=== PATIENT | male | born 1940 | race Caucasian/White ===

== ENCOUNTER 2016-05-30 17:46 | Inpatient (IN) ==
[2016-05-30] MEDS ORDERED: Aspirin 81 MG TAB.CHEW PO ONE (17:58)
[2016-05-30] MEDS ORDERED: Nitroglycerin 0.4 MG TAB.SUBL SL ONE (17:58)
--- NOTE | 2016-05-30 18:03 | Emergency Department Note ---
Disposition Clinical Impression: Community acquired pneumonia, [id number] kidney injury Chest pain Qualifiers: Chest pain type: chest pain due to myocardial ischemia Ischemic chest pain type : unspecified angina pectoris type Qualified Code(s): I20.9 - Angina pectoris, unspecified Disposition: Admitted As Inpatient Condition: Good Time of Disposition: 21:28 Chest Pain HPI - General Chief Complaint: ED Chest Pain Stated Complaint: CP Time Seen by Provider: 05/30/16 17:56 Source: EMS Limitations: no limitations Vital Signs Reviewed: Yes Nursing Notes Reviewed: Yes - History of Present Illness HPI Narrative: Patient is a 76-year-old male who complains of sudden onset of chest pain and left sided chest radiation to his back times. Patient states he has history of COPD, AL, aortic aneurysm, DVT, and is on Coumadin. He states pain 8 out of 10 was given nitroglycerin brought his pain down to 4 out of 10. Patient was given another nitroglycerin here in the ED but his pain down to 1/10. Severity scale (1-10): 8 - Related Data Home Medications Medication Instructions Recorded Confirmed Atorvastatin [Lipitor] 20 mg PO DAILY 04/10/15 06/04/16 Escitalopram [Lexapro] 40 mg PO DAILY 04/10/15 06/04/16 Furosemide [Lasix] 20 mg PO DAILY 04/10/15 06/04/16 Levothyroxine [Synthroid] 75 mcg PO DAILY 04/10/15 06/04/16 Mirtazapine [Remeron] 15 mg PO HS 04/10/15 06/04/16 Warfarin [Coumadin] 5 mg PO MOFR 04/10/15 06/04/16 Lamotrigine [Lamictal] 25 mg PO DAILY 08/03/15 06/04/16 Buspirone HCl [Buspar] 7.5 mg PO BID 05/30/16 06/04/16 Cyanocobalamin (Vitamin B-12) 1,000 mcg PO DAILY 05/30/16 06/04/16 [Vitamin B12] Melatonin/Pyridoxine HCl (B6) 3 mg PO HS 05/30/16 06/04/16 [Melatonin 3 mg Tablet] Omeprazole [PriLOSEC] 20 mg PO DAILY 05/30/16 06/04/16 Polyethylene Glycol 3350 [MiraLAX] 17 gm PO DAILY 05/30/16 06/04/16 Warfarin [Coumadin] 2.5 mg PO SUTUWETHSA 05/30/16 06/04/16 Previous Rx's Medication Instructions Recorded Acetaminophen [Tylenol] 650 mg PO Q6HR PRN #90 tablet 06/03/16 Aspirin Enteric Coated [Aspirin EC] 81 mg PO DAILY #90 tablet. 06/03/16 Docusate [Colace] 100 mg PO BID PRN #100 capsule 06/03/16 Midodrine [ProAmatine] 5 mg PO 0800,1200,1700 #90 tablet 06/03/16 Allergies Allergy/AdvReac Type Severity Reaction Status Date / Time Iodinated Contrast Media - Allergy Anaphylaxis Verified 06/04/16 10:53 Oral and [Iodinated Contrast Media - IV Dye] diazepam [From Valium] AdvReac Confusion Verified 06/04/16 10:53 lisinopril AdvReac Cough Verified 06/04/16 10:53 All systems ED: reviewed and negative except as stated. Constitutional: Denies: fever, chills Eyes: Denies: eye pain, eye discharge ENT ED: Denies: ear pain, throat pain, congestion Cardiovascular: Reports: chest pain Chest Pain PMH - Past Medical History Medical history: Reports: asthma, COPD, CVA, hyperlipidemia, hypertension, myocardial infarction Surgical history: Reports: angioplasty/stent, cholecystectomy Psychiatric history: Reports: no psych history - Social History Smoking Status: Former smoker Alcohol use: Reports: none Drug use: Reports: none Physical Exam Vital Signs Temperature 98.1 F 05/30/16 17:51 Pulse Rate 57 05/30/16 17:51 Respiratory Rate 16 05/30/16 17:51 Blood Pressure 151/61 05/30/16 17:51 O2 Sat by Pulse Oximetry 99 05/30/16 17:51 Temperature 0 F L 05/30/16 21:48 Pulse Rate 57 05/30/16 18:02 Respiratory Rate 16 05/30/16 21:48 Blood Pressure 158/75 05/30/16 21:48 O2 Sat by Pulse Oximetry 99 05/30/16 18:02 Oxygen Delivery Oxygen Delivery Room Air -General Appearance: Patient is a 76-year-old male who is alert and oriented 3 and in no acute distress. Patient sitting up and is able to relay particularly exam of all directions to exam. -Neurological exam: Cranial nerves II-12 intact, no focal deficits observed, strength equal 5/5 bilaterally in upper and lower extremities, cerebellar motion test negative. Negative loss of sensation - Head Head exam: atraumatic, normocephalic, normal inspection - Eye Eye exam: Present: normal appearance, PERRL, EOMI, negative for scleral icterus negative for conjunctival pallor - ENT ENT exam: normal exam, normal oropharynx, mucous membranes moist - Neck Neck exam: Present: normal inspection, full ROM, trachea midline, negative JVD - Chest Chest inspection: Present: Patient has bilateral equal rise and fall of chest wall. Non-tender to palpation. No reproducible chest wall tenderness - Respiratory Respiratory exam: Clear to auscultation bilaterally without wheezes rales or rhonchi Cardiovascular Cardiovascular exam: Present: irregular rate, normal rhythm, normal heart sounds , without murmurs rubs or gallops. - Abdominal Exam Abdominal exam: Present: soft, nondistended, tender to palpation in epigastric region. Bowel sounds normoactive throughout all 4 quadrants. Negative for hyper or hyperresonance. Surgical scar present midline abdomen - Extremities Exam Extremities exam: Present: normal inspection, full ROM pulses equal bilateral radial and dorsal pedal pulses. No pedal edema present. - Back Exam Back exam: Present: normal inspection, full ROM. Absent: tenderness, CVA tenderness (R), CVA tenderness (L) - Psychiatric Psychiatric exam: Present: normal affect, normal mood - Skin Skin exam: Present: warm, dry, intact, normal color - General Limitations: no limitations General appearance: alert, in no apparent distress Course Course Narrative: Seen and examined. CT and labs ordered. Nitroglycerin ordered. Aspirin ordered. - Reevaluation(s) Reevaluation #1: Patient is comfortable. Patient states his pain is 1 out of 10. Patient awaiting CT Time: 18:00 Reevaluation #2: Patient states still comfortable. No change in pain. Patient does not want any more nitroglycerin Time: 19:00 Reevaluation #3: CT scan shows patient has bilateral pneumonia and will require antibiotic therapy. Patient will be admitted. Patient agrees and understands treatment and plan. Time: 21:20 - Consultations Consultation #1: Dr. Jasmine has accepted for admission Time: 21:24 Vital Signs Temperature 98.1 F 05/30/16 17:51 Pulse Rate 57 05/30/16 17:51 Respiratory Rate 16 05/30/16 17:51 Blood Pressure 151/61 05/30/16 17:51 O2 Sat by Pulse Oximetry 99 05/30/16 17:51 Temperature 97.9 F 06/03/16 07:33 Pulse Rate 53 06/03/16 08:06 Respiratory Rate 16 06/03/16 07:33 Blood Pressure 141/63 06/03/16 08:06 O2 Sat by Pulse Oximetry 98 06/03/16 07:33 Oxygen Delivery Oxygen Delivery Room Air Chest Pain - MDM Narrative Medical decision making narrative: 76-year-old male place of chest pain. Worrisome for possible ACS, aortic aneurysm rupture, aortic dissection. Patient has history of aneurysms, AL, COPD. EKG shows sinus bradycardia at 57 bpm, no signs of ischemia when compared to previous EKG. Troponin is -0.01. BNP negative. Chest x-ray : Chest X-Ray 05/30/16 17:58 IMPRESSION: 1. No acute cardiopulmonary disease. D/ / Syed Jacobson MD / Syed Jacobson MD Interpreting Provider: Syed Jacobson MD Abdomen/Pelvis CT 05/30/16 18:04 IMPRESSION: 1. Mild bilateral upper and lower lobe tree-in-bud opacities compatible with an infectious or inflammatory process. Trace left pleural effusion. 2. Coronary artery atherosclerotic vascular disease. 3. Mildly enlarged nonspecific distal peritracheal lymph node mildly increased in size from 2009. 4. 3.9 x 3.7 cm fusiform infrarenal abdominal aortic aneurysm slightly increased in size from 11/29/2015. D/ / Jadyen Mabry MD / Jayden Mabry MD Interpreting Provider: Jayden Mabry MD Chest CT 05/30/16 18:04 IMPRESSION: 1. Mild bilateral upper and lower lobe tree-in-bud opacities compatible with an infectious or inflammatory process. Trace left pleural effusion. 2. Coronary artery atherosclerotic vascular disease. 3. Mildly enlarged nonspecific distal peritracheal lymph node mildly increased in size from 2009. 4. 3.9 x 3.7 cm fusiform infrarenal abdominal aortic aneurysm slightly increased in size from 11/29/2015. D/ / Jayden Mabry MD / Jayden Mabry MD Interpreting Provider: Jayden Mabry MD . Patient has a pneumonia, community-acquired. Patient started on 2 g ceftriaxone, 500 mg azithromycin. Patient will be admitted for further care. Dr. Jasmine accepted for admission. - Medical Records Medical records reviewed: Yes I reviewed the patient's medical records. - Lab Data Lab results reviewed: Yes I reviewed the patient's lab results. Lab results narrative: Short CBC 05/30/16 Range/Units 18:57 WBC 8.1 (4.3-11.1) K/mcL Hgb 13.5 (12.9-16.9) g/dL Hct 40.8 (37.5-50.1) % Plt Count 170 (140-400) K/mcL Neutrophils # 5.5 (1.6-8.9) K/mcL BMP 05/30/16 Range/Units 18:57 Sodium 141 (136-145) mEq/L Potassium 4.1 (3.5-4.5) mEq/L Chloride 105 (98-109) mEq/L Carbon Dioxide 25 (19-29) mEq/L BUN 18 (8-26) mg/dL Creatinine 1.75 H (0.72-1.25) mg/dL Glucose 94 (70-99) mg/dL Calcium 8.9 (8.6-10.8) mg/dL Cardiac Enzymes 05/30/16 Range/Units 18:57 Troponin I 0.01 (0-0.03) ng/mL Result diagrams: 06/03/16 10:06 06/03/16 10:06 Lab Results 05/30/16 05/30/16 05/30/16 Range/Units 18:57 18:57 18:57 WBC 8.1 (4.3-11.1) K/mcL RBC 4.57 (4.19-5.50) M/mcL Hgb 13.5 (12.9-16.9) g/dL Hct 40.8 (37.5-50.1) % MCV 89.3 (83.0-100.0) fL MCH 29.5 (28.0-33.3) pg MCHC 33.1 (31.6-35.5) g/dL RDW 13.9 (11.5-14.5) % Plt Count 170 (140-400) K/mcL MPV 9.2 L (9.4-12.4) fL Immature Gran % 0.4 (0-4) % Seg Neutrophils % 67.7 % Lymphocytes % 24.3 % Monocytes % 5.9 % Eosinophils % 1.2 % Basophils % 0.5 % Neutrophils # 5.5 (1.6-8.9) K/mcL Lymphocytes # 2.0 (0.6-4.6) K/mcL Monocytes # 0.5 (0.0-1.3) K/mcL Eosinophils # 0.1 (0.0-0.6) K/mcL Basophils # 0.0 (0.0-0.2) K/mcL PT 21.1 H (9.4-12.1) Seconds INR 1.9 APTT 37.3 H (26.0-36.0) Seconds VBG pH (7.32-7.42) pH Units VBG pCO2 (41-51) mmHg VBG pO2 (25-40) mmHg VBG HCO3 (21-27) mEq/L Sodium (136-145) mEq/L Potassium (3.5-4.5) mEq/L Chloride (98-109) mEq/L Carbon Dioxide (19-29) mEq/L BUN (8-26) mg/dL Creatinine (0.72-1.25) mg/dL Est GFR ( Amer) (> 60) Est GFR (Non-Af Amer) (> 60) BUN/Creatinine Ratio (6-26) Glucose (70-99) mg/dL Calculated Osmolality (280-300) Calcium (8.6-10.8) mg/dL Ionized Calcium (1.15-1.35) mmol/L Phosphorus (2.3-4.7) mg/dL Magnesium (1.6-2.6) mg/dL Total Bilirubin (0.2-1.2) mg/dL AST (5-34) Units/L ALT (0-55) Units/L Alkaline Phosphatase (38-126) Units/L Troponin I (0-0.03) ng/mL B-Natriuretic Peptide 363 H (0-100) pg/mL Serum Total Protein (6.0-8.3) g/dL Albumin (3.5-5.0) g/dL Globulin (2.4-3.5) g/dL Albumin/Globulin Ratio (1.1-2.2) Triglycerides (< 150) mg/dL Cholesterol (< 200) mg/dL LDL Cholesterol, Calc (0-99) mg/dL VLDL Cholesterol, Calc (< 31) mg/dL HDL Cholesterol (40-59) mg/dL Cholesterol/HDL Ratio (0-4.9) TSH (0.350-4.840) mcIU/mL Urine Color (Yellow) Urine Clarity (Clear) Urine pH (5.0-8.0) pH Units Ur Specific [place] (1.010-1.025) Urine Protein (Neg-Trace) mg/dL Urine Glucose (UA) (Normal) mg/dL Urine Ketones (Negative) mg/dL Urine Blood (Negative) Urine Nitrite (Negative) Urine Bilirubin (Negative) Urine Urobilinogen (Normal) mg/dL Ur Leukocyte Esterase (Negative) Urine Microscopic RBC (0-3) per hpf Urine Microscopic WBC (0-3) per hpf Ur Squamous Epith Cells (None-Few) per lpf Urine Bacteria (None-Few) per hpf Hyaline Casts (None-Few) per lpf Ur Culture Indicated? (NO) Histoplasma Antigen U/mL Histoplasma Ag Interp (Negative) 05/30/16 05/30/16 05/30/16 Range/Units 18:57 18:57 23:08 WBC (4.3-11.1) K/mcL RBC (4.19-5.50) M/mcL Hgb (12.9-16.9) g/dL Hct (37.5-50.1) % MCV (83.0-100.0) fL MCH (28.0-33.3) pg MCHC (31.6-35.5) g/dL RDW (11.5-14.5) % Plt Count (140-400) K/mcL MPV (9.4-12.4) fL Immature Gran % (0-4) % Seg Neutrophils % % Lymphocytes % % Monocytes % % Eosinophils % % Basophils % % Neutrophils # (1.6-8.9) K/mcL Lymphocytes # (0.6-4.6) K/mcL Monocytes # (0.0-1.3) K/mcL Eosinophils # (0.0-0.6) K/mcL Basophils # (0.0-0.2) K/mcL PT (9.4-12.1) Seconds INR APTT (26.0-36.0) Seconds VBG pH (7.32-7.42) pH Units VBG pCO2 (41-51) mmHg VBG pO2 (25-40) mmHg VBG HCO3 (21-27) mEq/L Sodium 141 (136-145) mEq/L Potassium 4.1 (3.5-4.5) mEq/L Chloride 105 (98-109) mEq/L Carbon Dioxide 25 (19-29) mEq/L BUN 18 (8-26) mg/dL Creatinine 1.75 H (0.72-1.25) mg/dL Est GFR ( Amer) 46 L (> 60) Est GFR (Non-Af Amer) 38 L (> 60) BUN/Creatinine Ratio 10 (6-26) Glucose 94 (70-99) mg/dL Calculated Osmolality 294 (280-300) Calcium 8.9 (8.6-10.8) mg/dL Ionized Calcium (1.15-1.35) mmol/L Phosphorus (2.3-4.7) mg/dL Magnesium (1.6-2.6) mg/dL Total Bilirubin (0.2-1.2) mg/dL AST (5-34) Units/L ALT (0-55) Units/L Alkaline Phosphatase (38-126) Units/L Troponin I 0.01 0.01 (0-0.03) ng/mL B-Natriuretic Peptide (0-100) pg/mL Serum Total Protein (6.0-8.3) g/dL Albumin (3.5-5.0) g/dL Globulin (2.4-3.5) g/dL Albumin/Globulin Ratio (1.1-2.2) Triglycerides (< 150) mg/dL Cholesterol (< 200) mg/dL LDL Cholesterol, Calc (0-99) mg/dL VLDL Cholesterol, Calc (< 31) mg/dL HDL Cholesterol (40-59) mg/dL Cholesterol/HDL Ratio (0-4.9) TSH (0.350-4.840) mcIU/mL Urine Color (Yellow) Urine Clarity (Clear) Urine pH (5.0-8.0) pH Units Ur Specific [place] (1.010-1.025) Urine Protein (Neg-Trace) mg/dL Urine Glucose (UA) (Normal) mg/dL Urine Ketones (Negative) mg/dL Urine Blood (Negative) Urine Nitrite (Negative) Urine Bilirubin (Negative) Urine Urobilinogen (Normal) mg/dL Ur Leukocyte Esterase (Negative) Urine Microscopic RBC (0-3) per hpf Urine Microscopic WBC (0-3) per hpf Ur Squamous Epith Cells (None-Few) per lpf Urine Bacteria (None-Few) per hpf Hyaline Casts (None-Few) per lpf Ur Culture Indicated? (NO) Histoplasma Antigen U/mL Histoplasma Ag Interp (Negative) 05/31/16 05/31/16 05/31/16 Range/Units 00:15 06:26 06:26 WBC 8.3 (4.3-11.1) K/mcL RBC 5.25 (4.19-5.50) M/mcL Hgb 15.6 D (12.9-16.9) g/dL Hct 47.8 (37.5-50.1) % MCV 91.0 (83.0-100.0) fL MCH 29.7 (28.0-33.3) pg MCHC 32.6 (31.6-35.5) g/dL RDW 14.0 (11.5-14.5) % Plt Count 160 (140-400) K/mcL MPV 9.2 L (9.4-12.4) fL Immature Gran % 0.5 (0-4) % Seg Neutrophils % 52.3 % Lymphocytes % 37.0 % Monocytes % 6.7 % Eosinophils % 2.8 % Basophils % 0.7 % Neutrophils # 4.3 (1.6-8.9) K/mcL Lymphocytes # 3.1 (0.6-4.6) K/mcL Monocytes # 0.6 (0.0-1.3) K/mcL Eosinophils # 0.2 (0.0-0.6) K/mcL Basophils # 0.1 (0.0-0.2) K/mcL PT 18.0 H (9.4-12.1) Seconds INR 1.6 APTT 28.4 (26.0-36.0) Seconds VBG pH (7.32-7.42) pH Units VBG pCO2 (41-51) mmHg VBG pO2 (25-40) mmHg VBG HCO3 (21-27) mEq/L Sodium (136-145) mEq/L Potassium (3.5-4.5) mEq/L Chloride (98-109) mEq/L Carbon Dioxide (19-29) mEq/L BUN (8-26) mg/dL Creatinine (0.72-1.25) mg/dL Est GFR ( Amer) (> 60) Est GFR (Non-Af Amer) (> 60) BUN/Creatinine Ratio (6-26) Glucose (70-99) mg/dL Calculated Osmolality (280-300) Calcium (8.6-10.8) mg/dL Ionized Calcium (1.15-1.35) mmol/L Phosphorus (2.3-4.7) mg/dL Magnesium (1.6-2.6) mg/dL Total Bilirubin (0.2-1.2) mg/dL AST (5-34) Units/L ALT (0-55) Units/L Alkaline Phosphatase (38-126) Units/L Troponin I (0-0.03) ng/mL B-Natriuretic Peptide (0-100) pg/mL Serum Total Protein (6.0-8.3) g/dL Albumin (3.5-5.0) g/dL Globulin (2.4-3.5) g/dL Albumin/Globulin Ratio (1.1-2.2) Triglycerides (< 150) mg/dL Cholesterol (< 200) mg/dL LDL Cholesterol, Calc (0-99) mg/dL VLDL Cholesterol, Calc (< 31) mg/dL HDL Cholesterol (40-59) mg/dL Cholesterol/HDL Ratio (0-4.9) TSH (0.350-4.840) mcIU/mL Urine Color Yellow (Yellow) Urine Clarity Clear (Clear) Urine pH 8.5 H (5.0-8.0) pH Units Ur Specific [place] 1.016 (1.010-1.025) Urine Protein 30 H (Neg-Trace) mg/dL Urine Glucose (UA) Normal (Normal) mg/dL Urine Ketones Negative (Negative) mg/dL Urine Blood Negative (Negative) Urine Nitrite Negative (Negative) Urine Bilirubin Negative (Negative) Urine Urobilinogen Normal (Normal) mg/dL Ur Leukocyte Esterase Negative (Negative) Urine Microscopic RBC 0-3 (0-3) per hpf Urine Microscopic WBC 0-3 (0-3) per hpf Ur Squamous Epith Cells None Seen (None-Few) per lpf Urine Bacteria None Seen (None-Few) per hpf Hyaline Casts None Seen (None-Few) per lpf Ur Culture Indicated? NO (NO) Histoplasma Antigen U/mL Histoplasma Ag Interp (Negative) 05/31/16 05/31/16 05/31/16 Range/Units 06:26 06:26 06:26 WBC (4.3-11.1) K/mcL RBC (4.19-5.50) M/mcL Hgb (12.9-16.9) g/dL Hct (37.5-50.1) % MCV (83.0-100.0) fL MCH (28.0-33.3) pg MCHC (31.6-35.5) g/dL RDW (11.5-14.5) % Plt Count (140-400) K/mcL MPV (9.4-12.4) fL Immature Gran % (0-4) % Seg Neutrophils % % Lymphocytes % % Monocytes % % Eosinophils % % Basophils % % Neutrophils # (1.6-8.9) K/mcL Lymphocytes # (0.6-4.6) K/mcL Monocytes # (0.0-1.3) K/mcL Eosinophils # (0.0-0.6) K/mcL Basophils # (0.0-0.2) K/mcL PT (9.4-12.1) Seconds INR APTT (26.0-36.0) Seconds VBG pH (7.32-7.42) pH Units VBG pCO2 (41-51) mmHg VBG pO2 (25-40) mmHg VBG HCO3 (21-27) mEq/L Sodium 143 (136-145) mEq/L Potassium 3.7 (3.5-4.5) mEq/L Chloride 106 (98-109) mEq/L Carbon Dioxide 24 (19-29) mEq/L BUN 17 (8-26) mg/dL Creatinine 1.69 H (0.72-1.25) mg/dL Est GFR ( Amer) 48 L (> 60) Est GFR (Non-Af Amer) 40 L (> 60) BUN/Creatinine Ratio 10 (6-26) Glucose 105 H (70-99) mg/dL Calculated Osmolality 298 (280-300) Calcium 9.3 (8.6-10.8) mg/dL Ionized Calcium 1.12 L (1.15-1.35) mmol/L Phosphorus 3.5 (2.3-4.7) mg/dL Magnesium 2.7 H (1.6-2.6) mg/dL Total Bilirubin 0.4 (0.2-1.2) mg/dL AST 15 (5-34) Units/L ALT 16 (0-55) Units/L Alkaline Phosphatase 89 (38-126) Units/L Troponin I 0.01 (0-0.03) ng/mL B-Natriuretic Peptide 410 H (0-100) pg/mL Serum Total Protein 6.9 (6.0-8.3) g/dL Albumin 3.7 (3.5-5.0) g/dL Globulin 3.2 (2.4-3.5) g/dL Albumin/Globulin Ratio 1.2 (1.1-2.2) Triglycerides 181 H (< 150) mg/dL Cholesterol 150 (< 200) mg/dL LDL Cholesterol, Calc 72 (0-99) mg/dL VLDL Cholesterol, Calc 36 H (< 31) mg/dL HDL Cholesterol 42 (40-59) mg/dL Cholesterol/HDL Ratio 3.6 (0-4.9) TSH 1.681 (0.350-4.840) mcIU/mL Urine Color (Yellow) Urine Clarity (Clear) Urine pH (5.0-8.0) pH Units Ur Specific [place] (1.010-1.025) Urine Protein (Neg-Trace) mg/dL Urine Glucose (UA) (Normal) mg/dL Urine Ketones (Negative) mg/dL Urine Blood (Negative) Urine Nitrite (Negative) Urine Bilirubin (Negative) Urine Urobilinogen (Normal) mg/dL Ur Leukocyte Esterase (Negative) Urine Microscopic RBC (0-3) per hpf Urine Microscopic WBC (0-3) per hpf Ur Squamous Epith Cells (None-Few) per lpf Urine Bacteria (None-Few) per hpf Hyaline Casts (None-Few) per lpf Ur Culture Indicated? (NO) Histoplasma Antigen U/mL Histoplasma Ag Interp (Negative) 05/31/16 05/31/16 Range/Units 06:26 06:26 WBC (4.3-11.1) K/mcL RBC (4.19-5.50) M/mcL Hgb (12.9-16.9) g/dL Hct (37.5-50.1) % MCV (83.0-100.0) fL MCH (28.0-33.3) pg MCHC (31.6-35.5) g/dL RDW (11.5-14.5) % Plt Count (140-400) K/mcL MPV (9.4-12.4) fL Immature Gran % (0-4) % Seg Neutrophils % % Lymphocytes % % Monocytes % % Eosinophils % % Basophils % % Neutrophils # (1.6-8.9) K/mcL Lymphocytes # (0.6-4.6) K/mcL Monocytes # (0.0-1.3) K/mcL Eosinophils # (0.0-0.6) K/mcL Basophils # (0.0-0.2) K/mcL PT (9.4-12.1) Seconds INR APTT (26.0-36.0) Seconds VBG pH 7.32 (7.32-7.42) pH Units VBG pCO2 54 H (41-51) mmHg VBG pO2 46 H (25-40) mmHg VBG HCO3 27.8 H (21-27) mEq/L Sodium (136-145) mEq/L Potassium (3.5-4.5) mEq/L Chloride (98-109) mEq/L Carbon Dioxide (19-29) mEq/L BUN (8-26) mg/dL Creatinine (0.72-1.25) mg/dL Est GFR ( Amer) (> 60) Est GFR (Non-Af Amer) (> 60) BUN/Creatinine Ratio (6-26) Glucose (70-99) mg/dL Calculated Osmolality (280-300) Calcium (8.6-10.8) mg/dL Ionized Calcium (1.15-1.35) mmol/L Phosphorus (2.3-4.7) mg/dL Magnesium (1.6-2.6) mg/dL Total Bilirubin (0.2-1.2) mg/dL AST (5-34) Units/L ALT (0-55) Units/L Alkaline Phosphatase (38-126) Units/L Troponin I (0-0.03) ng/mL B-Natriuretic Peptide (0-100) pg/mL Serum Total Protein (6.0-8.3) g/dL Albumin (3.5-5.0) g/dL Globulin (2.4-3.5) g/dL Albumin/Globulin Ratio (1.1-2.2) Triglycerides (< 150) mg/dL Cholesterol (< 200) mg/dL LDL Cholesterol, Calc (0-99) mg/dL VLDL Cholesterol, Calc (< 31) mg/dL HDL Cholesterol (40-59) mg/dL Cholesterol/HDL Ratio (0-4.9) TSH (0.350-4.840) mcIU/mL Urine Color (Yellow) Urine Clarity (Clear) Urine pH (5.0-8.0) pH Units Ur Specific [place] (1.010-1.025) Urine Protein (Neg-Trace) mg/dL Urine Glucose (UA) (Normal) mg/dL Urine Ketones (Negative) mg/dL Urine Blood (Negative) Urine Nitrite (Negative) Urine Bilirubin (Negative) Urine Urobilinogen (Normal) mg/dL Ur Leukocyte Esterase (Negative) Urine Microscopic RBC (0-3) per hpf Urine Microscopic WBC (0-3) per hpf Ur Squamous Epith Cells (None-Few) per lpf Urine Bacteria (None-Few) per hpf Hyaline Casts (None-Few) per lpf Ur Culture Indicated? (NO) Histoplasma Antigen <2.0 U/mL Histoplasma Ag Interp NEGATIVE (Negative) - Radiology Data Radiology results reviewed: Yes I reviewed the patient's radiology results. Chest X-Ray 05/30/16 17:58 IMPRESSION: 1. No acute cardiopulmonary disease. D/ / Syed Jacobson MD / Syed Jacobson MD Interpreting Provider: Syed Jacobson MD Abdomen/Pelvis CT 05/30/16 18:04 IMPRESSION: 1. Mild bilateral upper and lower lobe tree-in-bud opacities compatible with an infectious or inflammatory process. Trace left pleural effusion. 2. Coronary artery atherosclerotic vascular disease. 3. Mildly enlarged nonspecific distal peritracheal lymph node mildly increased in size from 2009. 4. 3.9 x 3.7 cm fusiform infrarenal abdominal aortic aneurysm slightly increased in size from 11/29/2015. D/ / Jayden Mabry MD / Jayden Mabry MD Interpreting Provider: Jayden Mabry MD Chest CT 05/30/16 18:04 IMPRESSION: 1. Mild bilateral upper and lower lobe tree-in-bud opacities compatible with an infectious or inflammatory process. Trace left pleural effusion. 2. Coronary artery atherosclerotic vascular disease. 3. Mildly enlarged nonspecific distal peritracheal lymph node mildly increased in size from 2009. 4. 3.9 x 3.7 cm fusiform infrarenal abdominal aortic aneurysm slightly increased in size from 11/29/2015. D/ / Jayden Mabry MD / Jayden Mabry MD Interpreting Provider: Jayden Mabry MD - EKG Data EKG attestation: Yes I reviewed and interpreted this EKG. EKG results narrative: EKG taken 05/30/2016 is a 52 hours shows a sinus bradycardia at a red circular rate of 57 bpm shows T-wave inversions in V2 and V3 seen EKG looks identical to previous EKG taken in 08/12/2015 shows normal sinus rhythm at 60 bpm. Heart Score - Score History: Moderately Suspicious EKG: Non Specific repolarisation Disturbance Age: Greater than 65 Risk Factors: Equal/Greater than 3 risk factor or history of atherosclerotic disease Troponin: Less than normal limit HEART Score Total: 6
--- NOTE | 2016-05-30 18:08 | Emergency Department Note ---
START Narrative - START START: I examined this patient and my medical decision-making was reviewed with the [employer] OPERATOR/PA/Advanced Practice Nurse/Resident Physician. I agree with the documented findings, disposition and treatment plan as described except to the extent set forth below. Patient to the emergency department complaining of chest pain. Started around 4 PM. He described it as palpitations that went into his back. States, trouble getting a deep breath. He is also some epigastric pain as well. History coronary disease with one stent placement. No cardiac workup within the past year. Took a nitroglycerin pill which helped. On exam he is in no distress. Heart regular rate and rhythm lungs are clear. I palpate his epigastric area the patient states to be careful because he has an aneurysm there. Plan. Cardiac workup. Patient has a history of abdominal aneurysm. He has chronic renal insufficiency. We will get a noncontrasted CT of the chest abdomen pelvis. Patient's aneurysm is under 4 cm. He does have tramadol opacities concerning for pneumonia. We will start him on some antibiotics and admitted to the hospitalist for treatment of his pneumonia and further workup of his chest pain.
[2016-05-30 19:06] LABS: Basophils % 0.5 %; Eosinophils # 0.1 K/mcL (0.0-0.6); Eosinophils % 1.2 %; Hematocrit 40.8 % (37.5-50.1); Hemoglobin 13.5 g/dL (12.9-16.9); Immature Granulocytes % 0.4 % (0-4); Lymphocytes % 24.3 %; Mean Corpuscular HGB Conc 33.1 g/dL (31.6-35.5); Mean Corpuscular Hemoglobin 29.5 pg (28.0-33.3); Mean Corpuscular Volume 89.3 fL (83.0-100.0); Mean Platelet Volume 9.2 fL (9.4-12.4); Monocytes # 0.5 K/mcL (0.0-1.3); Monocytes % 5.9 %; Neutrophils # 5.5 K/mcL (1.6-8.9); Platelet Count 170 K/mcL (140-400); Red Blood Count 4.57 M/mcL (4.19-5.50); Red Cell Distribution Width 13.9 % (11.5-14.5); Segmented Neutrophils % 67.7 %
[2016-05-30 19:11] LABS: INR 1.9; Prothrombin Time 21.1 Seconds (9.4-12.1)
[2016-05-30 19:14] LABS: Activated Partial Thrombo Time 37.3 Seconds (26.0-36.0)
[2016-05-30 19:20] LABS: Calcium 8.9 mg/dL (8.6-10.8); Potassium 4.1 mEq/L (3.5-4.5)
[2016-05-30] MEDS ORDERED: Nitroglycerin 0.4 MG TAB.SUBL SL PRN (19:27)
[2016-05-30] MEDS ORDERED: Naloxone 0.4 MG/ML INJ IVP PRN (22:46)
[2016-05-30] MEDS ORDERED: Acetaminophen 325 MG TABLET PO PRN (22:46)
[2016-05-30] MEDS ORDERED: Azithromycin 500 MG in D5% in Water 250 ML IVPB ONE (23:04)
--- NOTE | 2016-05-30 23:06 | Internal Med History&Physical ---
<ArmandoRoas Winsome Maikol - Last Filed: 05/31/16 03:25> Date of Encounter: 05/31/16 Time of Encounter: 22:20 Assessment and Plan (1) Chest pain, rule out acute myocardial infarction Status: Acute Troponin 0.01, will cycle troponins every 6 hours x 3 Echo results, pending EKG: no evidence of ST elevation or depression depression, bradycardia, prolonged QT, low voltage in inferior and precordial leads EKG is compared to prior study 08/12/2015 Repeat EKG in am Last heart cath was 3 years ago at [facility] Request records from [facility] Continue Telemetry monitoring (2) Community acquired pneumonia Status: Acute CT chest with mild tree-in-bud opacities in the bilateral upper lobes and also probably within the lower lobes -Trace left pleural effusion -No right pleural effusion of pneumothorax -Mild scarring in bilateral upper and lower lobes Begin Doxycycline and Ceftriaxone Sputum culture, pending Duonebs q3 hours Incentive spirometry WBC 8.1, Repeat CBC in am (3) Chronic kidney disease (CKD) Status: Acute Qualifiers: Chronic kidney disease stage: stage 3 (moderate) Qualified Code(s): N18.3 - Chronic kidney disease, stage 3 (moderate) (4) Orthostatic hypotension Status: Acute (5) Bradycardia Status: Acute EKG with evidence of sinus bradycardia -Previous EKG on 08/12/2015 showed sinus rhythm with Anteroseptal ST and T- wave changes possibly due to ischemia Continue to monitor on tele (6) Coronary artery disease Status: Acute Continue home medications Last heart cath was 3 years ago at [facility] Request records from [facility] Qualifiers: Coronary Disease-Associated Artery/Lesion type: unspecified vessel or lesion type [place] vs. transplanted heart: [place] heart Associated angina: with unspecified angina Qualified Code(s): I25.119 - Atherosclerotic heart disease of [place] coronary artery with unspecified angina pectoris (7) Hyperlipidemia Status: Acute Continue home medication Lipid panel, pending Qualifiers: Hyperlipidemia type: unspecified Qualified Code(s): E78.5 - Hyperlipidemia , unspecified (8) Bipolar depression Status: Acute (9) Lymph node enlargement Status: Acute CT chest: distal peritracheal lymph node 11mm in short axis (image 36) increased in size from 7mm on 11/30/2009 Recommend follow up with primary doctor (10) AAA (abdominal aortic aneurysm) Status: Acute CT abdomen: fusiform infrarenal AAA 3.9x3.7cm in maximal dimensions (image 69 axial) -Previous CT on 11/29/2015 AAA measured 3.8x3.6cm Recommend follow up with primary provider Qualifiers: Presence of rupture: without rupture Qualified Code(s): I71.4 - Abdominal aortic aneurysm, without rupture (11) History of DVT of lower extremity Status: Acute Continue coumadin for DVT prophylaxis (12) DVT prophylaxis Status: Acute continue coumadin Internal Medicine - H&P: HPI Chief complaint: chest pain, dyspnea Admitted From: Emergency Dept Plans for Post Hospital Care: Home History of present illness: Mr. Jaffe is a 76 year old male presented to the hospital with an episode of chest pain and dyspnea that occurred at 4pm. Patient states that he was having a bowel movement, stood, and felt his heart "flip-flopping" and "pounding" out of his chest. He had pain to sub-sternal chest described as non-radiating aching pain. He states that he could not breathe for approximately 10 minutes. He used a nitroglycerin and sat in a chair, which relieved symptoms. Patient denies nausea, vomiting, diaphoresis. He admits to 1 month history of dizziness which occurs when he stands from a seated position. He states that when these episodes occur, he "just about goes blind". Admits to regular chest pain or upper epigastric pain. Admits occassional dyspnea on exertion. Denies fever, chills, dyspnea at rest, nausea, vomiting, hematochezia, melena. Past Med Surg Social Fam HX - Past Medical History Medical history: aortic aneurysm, asthma, COPD, coronary artery disease, CVA, DVT, GERD, hyperlipidemia, hypertension, myocardial infarction, thyroid disease Psychiatric history: no psych history, bipolar, depression - Past Surgical History Surgical History: angioplasty/stent, appendectomy, cholecystectomy, other ( duodenal ulcer, had portion of stomach removed, had billroth tube ) - Social History Smoking Status: Former smoker Smokeless Tobacco Status: No Alcohol use: none Drug use: none - Family History Daughter Adopted: [place]: Mirna Mcgregor Age: 42 Living Status: Still Living Hx Family Cardiac Disorders: No Hx Family Respiratory Disorders: No Hx Family Cancer: No Hx Family GI Disorders: Yes (Choli) Hx Family Genitourinary Disorders: No Hx Family Endocrine Disorder: No Hx Family Musculoskeletal Disorders: No Hx Family Neuromuscular Disorders: No Hx Family Neurologic Disorders: No Hx Family HEENT Disorders: No Hx Family Autoimmune Disorders: No Hx Family Reproductive Disorders: No Hx Family Psychosocial Disorders: No Hx Family Medical Disorders: No Internal Medicine - H&P: Meds Atorvastatin [Lipitor] 20 mg PO DAILY 04/10/15 [History] Escitalopram [Lexapro] 40 mg PO DAILY 04/10/15 [History] Furosemide [Lasix] 20 mg PO DAILY 04/10/15 [History] Levothyroxine [Synthroid] 75 mcg PO DAILY 04/10/15 [History] Mirtazapine [Remeron] 15 mg PO HS 04/10/15 [History] Warfarin [Coumadin] 5 mg PO MOFR 04/10/15 [History] Lamotrigine [Lamictal] 25 mg PO DAILY 08/03/15 [History] Buspirone HCl [Buspar] 7.5 mg PO BID 05/30/16 [History] Cyanocobalamin (Vitamin B-12) [Vitamin B12] 1,000 mcg PO DAILY 05/30/16 [History ] Melatonin/Pyridoxine HCl (B6) [Melatonin 3 mg Tablet] 3 mg PO HS 05/30/16 [ History] Omeprazole [PriLOSEC] 20 mg PO DAILY 05/30/16 [History] Polyethylene Glycol 3350 [MiraLAX] 17 gm PO DAILY 05/30/16 [History] Warfarin [Coumadin] 2.5 mg PO SUTUWETHSA 05/30/16 [History] Acetaminophen [Tylenol] 650 mg PO Q6HR PRN #90 tablet 06/03/16 [Rx] Aspirin Enteric Coated [Aspirin EC] 81 mg PO DAILY #90 tablet. 06/03/16 [Rx] Docusate [Colace] 100 mg PO BID PRN #100 capsule 06/03/16 [Rx] Midodrine [ProAmatine] 5 mg PO 0800,1200,1700 #90 tablet 06/03/16 [Rx] Allergies Iodinated Contrast Media - Oral and [Iodinated Contrast Media - IV Dye] Allergy (Verified 05/30/16 17:48) Anaphylaxis diazepam [From Valium] Adverse Reaction (Verified 05/30/16 22:02) Confusion lisinopril Adverse Reaction (Verified 05/30/16 22:02) Cough All Systems PM: A 10-system review of systems was performed and is negative for pertinent findings except as documented above in the HPI. - Constitutional Vitals: Temp Pulse Resp BP Pulse Ox 0 F L 57 16 158/75 99 05/30/16 21:48 05/30/16 18:02 05/30/16 21:48 05/30/16 21:48 05/30/16 18:02 General appearance: Present: cooperative, A&O X 3, pleasant - Head Head exam: Present: atraumatic, normal inspection, normocephalic - Respiratory Respiratory exam: Present: CTAB, rhonchi (episodic) - Cardiovascular Cardiovascular exam: Present: RRR, +S1, +S2. Absent: JVD Additional comments: no peripheral edema - GI/Abdominal GI/Abdominal exam: Present: normal bowel sounds, soft. Absent: tenderness - Extremities Exam Extremities exam: Present: normal inspection, radial pulses palpable and symetrical - Neurological Exam Neurological exam: Present: oriented X3 - Psychiatric Psychiatric exam: Present: normal affect Internal Med - H&P Results - Labs CBC & Chem 7: 05/30/16 18:57 05/30/16 18:57 - EKG Data Rate: bradycardia (Normal axis, prolonged QT interval, septal leads with strain pattern, low voltage inferior and precordial leads) - Attending Attestation I examined this patient and my medical decision-making was reviewed with the GEOMETRY PROFESSOR/PA/Advanced Practice Nurse/Resident Physician. I agree with the documented findings, disposition and treatment plan as described except to the extent set forth below. <Riky Newmanis - Last Filed: 06/04/16 01:28> Date of Encounter: 05/30/16 Internal Medicine - H&P: HPI History of present illness: Mr. Jaffe is a 76 year old male The patient was visited and interviewed and examined. I examined this patient and my medical decision-making was reviewed with the Resident Physician. I agree with the documented findings, disposition and treatment plan as described except to the extent set forth below. Cumulative laboratory and radiographic data reviewed and considered and discussed. Pertinent ancillary medical records including ECW and PCI documentation was reviewed and considered. Given the patient's presenting concerns, past medical history, clinical findings and symptoms, he is admitted at this time to undergo further evaluation and disposition. Orders written as per the computerized recorder of deeds system............................ All Systems PM: A 10-system review of systems was performed and is negative for pertinent findings except as documented above in the HPI. - Constitutional Vitals: Temp Pulse Resp BP Pulse Ox 97.9 F 53 16 141/63 98 06/03/16 07:33 06/03/16 08:06 06/03/16 07:33 06/03/16 08:06 06/03/16 07:33 Internal Med - H&P Results - Labs CBC & Chem 7: 06/03/16 10:06 06/03/16 10:06 Labs: Short CBC 06/03/16 Range/Units 10:06 WBC 7.5 (4.3-11.1) K/mcL Hgb 12.5 L (12.9-16.9) g/dL Hct 39.0 (37.5-50.1) % Plt Count 162 (140-400) K/mcL Neutrophils # 4.5 (1.6-8.9) K/mcL BMP 06/03/16 10:06 Sodium 142 Potassium 5.0 H Chloride 109 Carbon Dioxide 23 BUN 14 Creatinine 1.64 H Glucose 82 Calcium 9.3 - Impressions ITS Impressions Pelvis CT 06/02/16 15:11 IMPRESSION: No acute intrapelvic abnormality identified. Small left inguinal hernia containing only fat. D/ / Noemy Garcia Cha, MD / Noemy Garcia Cha, MD Interpreting Provider: Noemy Garcia Cha, MD Vital Signs Temp Pulse Pulse Pulse Pulse Resp BP 06/03/16 08:06 53 53 70 06/03/16 07:33 97.9 F 66 16 108/82 06/03/16 04:24 97.6 F 47 16 118/53 BP BP BP Pulse Ox 06/03/16 08:06 141/63 128/56 100/50 06/03/16 07:33 98 06/03/16 04:24 94 L Short CBC 06/03/16 Range/Units 10:06 WBC 7.5 (4.3-11.1) K/mcL Hgb 12.5 L (12.9-16.9) g/dL Hct 39.0 (37.5-50.1) % Plt Count 162 (140-400) K/mcL Neutrophils # 4.5 (1.6-8.9) K/mcL BMP 06/03/16 Range/Units 10:06 Sodium 142 (136-145) mEq/L Potassium 5.0 H (3.5-4.5) mEq/L Chloride 109 (98-109) mEq/L Carbon Dioxide 23 (19-29) mEq/L BUN 14 (8-26) mg/dL Creatinine 1.64 H (0.72-1.25) mg/dL Glucose 82 (70-99) mg/dL Calcium 9.3 (8.6-10.8) mg/dL Allergies Allergy/AdvReac Type Severity Reaction Status Date / Time Iodinated Contrast Media - Allergy Anaphylaxis Verified 05/30/16 17:48 Oral and [Iodinated Contrast Media - IV Dye] diazepam [From Valium] AdvReac Confusion Verified 05/30/16 22:02 lisinopril AdvReac Cough Verified 05/30/16 22:02 Laboratory Results WBC 7.5 K/mcL (4.3-11.1) 06/03/16 10:06 RBC 4.19 M/mcL (4.19-5.50) 06/03/16 10:06 Hgb 12.5 g/dL (12.9-16.9) L 06/03/16 10:06 Hct 39.0 % (37.5-50.1) 06/03/16 10:06 MCV 93.1 fL (83.0-100.0) 06/03/16 10:06 MCH 29.8 pg (28.0-33.3) 06/03/16 10:06 MCHC 32.1 g/dL (31.6-35.5) 06/03/16 10:06 RDW 14.6 % (11.5-14.5) H 06/03/16 10:06 Plt Count 162 K/mcL (140-400) 06/03/16 10:06 MPV 9.5 fL (9.4-12.4) 06/03/16 10:06 Immature Gran % 0.4 % (0-4) 06/03/16 10:06 Seg Neutrophils % 59.8 % 06/03/16 10:06 Lymphocytes % 27.5 % 06/03/16 10:06 Monocytes % 7.2 % 06/03/16 10:06 Eosinophils % 4.4 % 06/03/16 10:06 Basophils % 0.7 % 06/03/16 10:06 Neutrophils # 4.5 K/mcL (1.6-8.9) 06/03/16 10:06 Lymphocytes # 2.1 K/mcL (0.6-4.6) 06/03/16 10:06 Monocytes # 0.5 K/mcL (0.0-1.3) 06/03/16 10:06 Eosinophils # 0.3 K/mcL (0.0-0.6) 06/03/16 10:06 Basophils # 0.1 K/mcL (0.0-0.2) 06/03/16 10:06 PT 20.1 Seconds (9.4-12.1) H 06/03/16 04:06 INR 1.8 06/03/16 04:06 APTT 28.4 Seconds (26.0-36.0) 05/31/16 06:26 VBG pH 7.32 pH Units (7.32-7.42) 05/31/16 06:26 VBG pCO2 54 mmHg (41-51) H 05/31/16 06:26 VBG pO2 46 mmHg (25-40) H 05/31/16 06:26 VBG HCO3 27.8 mEq/L (21-27) H 05/31/16 06:26 Sodium 142 mEq/L (136-145) 06/03/16 10:06 Potassium 5.0 mEq/L (3.5-4.5) H 06/03/16 10:06 Chloride 109 mEq/L (98-109) 06/03/16 10:06 Carbon Dioxide 23 mEq/L (19-29) 06/03/16 10:06 BUN 14 mg/dL (8-26) 06/03/16 10:06 Creatinine 1.64 mg/dL (0.72-1.25) H 06/03/16 10:06 Est GFR ( Amer) 50 (> 60) L 06/03/16 10:06 Est GFR (Non-Af Amer) 41 (> 60) L 06/03/16 10:06 BUN/Creatinine Ratio 9 (6-26) 06/03/16 10:06 Glucose 82 mg/dL (70-99) 06/03/16 10:06 Calculated Osmolality 294 (280-300) 06/03/16 10:06 Calcium 9.3 mg/dL (8.6-10.8) 06/03/16 10:06 Ionized Calcium 1.19 mmol/L (1.15-1.35) 06/02/16 04:49 Phosphorus 3.7 mg/dL (2.3-4.7) 06/02/16 04:49 Magnesium 2.2 mg/dL (1.6-2.6) 06/02/16 04:49 Total Bilirubin 0.4 mg/dL (0.2-1.2) 05/31/16 06:26 AST 15 Units/L (5-34) 05/31/16 06:26 ALT 16 Units/L (0-55) 05/31/16 06:26 Alkaline Phosphatase 89 Units/L (38-126) 05/31/16 06:26 Troponin I 0.01 ng/mL (0-0.03) 05/31/16 06:26 B-Natriuretic Peptide 410 pg/mL (0-100) H 05/31/16 06:26 Serum Total Protein 6.9 g/dL (6.0-8.3) 05/31/16 06:26 Albumin 3.7 g/dL (3.5-5.0) 05/31/16 06:26 Globulin 3.2 g/dL (2.4-3.5) 05/31/16 06:26 Albumin/Globulin Ratio 1.2 (1.1-2.2) 05/31/16 06:26 Triglycerides 181 mg/dL (< 150) H 05/31/16 06:26 Cholesterol 150 mg/dL (< 200) 05/31/16 06:26 LDL Cholesterol, Calc 72 mg/dL (0-99) 05/31/16 06:26 VLDL Cholesterol, Calc 36 mg/dL (< 31) H 05/31/16 06:26 HDL Cholesterol 42 mg/dL (40-59) 05/31/16 06:26 Cholesterol/HDL Ratio 3.6 (0-4.9) 05/31/16 06:26 TSH 1.217 mcIU/mL (0.350-4.840) 06/02/16 04:49 Random Cortisol 8.3 mcg/dl 06/02/16 09:31 Urine Color Yellow (Yellow) 05/31/16 00:15 Urine Clarity Clear (Clear) 05/31/16 00:15 Urine pH 8.5 pH Units (5.0-8.0) H 05/31/16 00:15 Ur Specific [place] 1.016 (1.010-1.025) 05/31/16 00:15 Urine Protein 30 mg/dL (Neg-Trace) H 05/31/16 00:15 Urine Glucose (UA) Normal mg/dL (Normal) 05/31/16 00:15 Urine Ketones Negative mg/dL (Negative) 05/31/16 00:15 Urine Blood Negative (Negative) 05/31/16 00:15 Urine Nitrite Negative (Negative) 05/31/16 00:15 Urine Bilirubin Negative (Negative) 05/31/16 00:15 Urine Urobilinogen Normal mg/dL (Normal) 05/31/16 00:15 Ur Leukocyte Esterase Negative (Negative) 05/31/16 00:15 Urine Microscopic RBC 0-3 per hpf (0-3) 05/31/16 00:15 Urine Microscopic WBC 0-3 per hpf (0-3) 05/31/16 00:15 Ur Squamous Epith Cells None Seen per lpf (None-Few) 05/31/16 00:15 Urine Bacteria None Seen per hpf (None-Few) 05/31/16 00:15 Hyaline Casts None Seen per lpf (None-Few) 05/31/16 00:15 Ur Culture Indicated? NO (NO) 05/31/16 00:15 Histoplasma Antigen <2.0 U/mL 05/31/16 06:26 Histoplasma Ag Interp NEGATIVE (Negative) 05/31/16 06:26 Impressions Chest X-Ray 05/30/16 17:58 IMPRESSION: 1. No acute cardiopulmonary disease. D/ / Syed Jacobson MD / Syed Jacobson MD Interpreting Provider: Syed Jacobson MD Abdomen/Pelvis CT 05/30/16 18:04 IMPRESSION: 1. Mild bilateral upper and lower lobe tree-in-bud opacities compatible with an infectious or inflammatory process. Trace left pleural effusion. 2. Coronary artery atherosclerotic vascular disease. 3. Mildly enlarged nonspecific distal peritracheal lymph node mildly increased in size from 2009. 4. 3.9 x 3.7 cm fusiform infrarenal abdominal aortic aneurysm slightly increased in size from 11/29/2015. D/ / Jayden Mabry MD / Jayden Mabry MD Interpreting Provider: Jayden Mabry MD Chest CT 05/30/16 18:04 IMPRESSION: 1. Mild bilateral upper and lower lobe tree-in-bud opacities compatible with an infectious or inflammatory process. Trace left pleural effusion. 2. Coronary artery atherosclerotic vascular disease. 3. Mildly enlarged nonspecific distal peritracheal lymph node mildly increased in size from 2009. 4. 3.9 x 3.7 cm fusiform infrarenal abdominal aortic aneurysm slightly increased in size from 11/29/2015. D/ / Jayden Mabry MD / Jayden Mabry MD Interpreting Provider: Jayden Mabry MD Pelvis CT 06/02/16 15:11 IMPRESSION: No acute intrapelvic abnormality identified. Small left inguinal hernia containing only fat. D/ / Noemy Garcia Cha, MD / Noemy Garcia Cha, MD Interpreting Provider: Noemy Garcia Cha, MD - Attending Attestation My signature below is to certify that this patient is under my care and that I, or Resident Physician working with me, has had a [id number] encounter with this patient. Plan of care has been reviewed and discussed in detail with the patient. Questions addressed. Healthcare directive discussion briefly addressed. The patient does not declare any healthcare restrictions at this time. Outpatient medications schedules will be reviewed, confirmed facilitated as appropriate. Reconciliation of home treatments including adjustments, substitutions and reintroduction his treatment regimen will address necessary maintenance therapies for chronic pre-existing medical condition. Hospital course will be dependent upon clinical findings, treatment response and potential consultative interventions. The patient is at risk for further acute clinical decline and mobility given his presenting chief complaint, findings and comorbidities. Condition is serious. Prognosis is cautiously optimistic. CODE STATUS is full.
[2016-05-31] MEDS: Mirtazapine 15 MG TABLET PO SCH ×2 (00:54→21:04)
[2016-05-31] MEDS: Melatonin 3 MG TABLET PO SCH ×2 (00:54→21:04)
[2016-05-31] MEDS: *HR* Warfarin 2.5 MG TABLET PO SCH (00:54)
[2016-05-31 02:55] LABS: Bilirubin,Urine Negative (Negative); Blood,Urine Negative (Negative); Clarity,Urine Clear (Clear); Color,Urine Yellow (Yellow); Glucose,Urine (UA) Normal (Normal); Ketones,Urine Negative (Negative); Leukocyte Esterase,Urine Negative (Negative); Nitrite,Urine Negative (Negative); PH,Urine 8.5 pH Units (5.0-8.0); Protein,Urine 30 mg/dL (Neg-Trace); Specific Gravity,Urine 1.016 (1.010-1.025); Urobilinogen,Urine Normal (Normal)
[2016-05-31 02:58] LABS: Bacteria,Urine None Seen per hpf (None-Few); Hyaline Casts,Urine None Seen per lpf (None-Few); RBC,Urine 0-3 per hpf (0-3); Squamous Epithelial Cell,Urine None Seen per lpf (None-Few); WBC,Urine 0-3 per hpf (0-3)
[2016-05-31] MEDS ORDERED: Mag Hydrox/Al Hydrox/Simeth 30 ML UDC PO PRN (03:11)
[2016-05-31] MEDS ORDERED: MOM Conc 10 ML UD.LIQ PO PRN (03:11)
[2016-05-31] MEDS ORDERED: *HR* Morphine 2 MG/ML SYRINGE IVP PRN (03:11)
[2016-05-31] MEDS ORDERED: *HR* Promethazine 25 MG/ML VIAL IVP PRN (03:11)
[2016-05-31] MEDS ORDERED: 0.9 % Sodium Chloride 1,000 ML IVC SCH (03:15)
[2016-05-31] MEDS ORDERED: Albuterol 2.5 MG/3 ML NEBULIZER IH PRN (03:16)
[2016-05-31] MEDS ORDERED: Benzonatate 100 MG CAPSULE PO PRN (03:17)
[2016-05-31] MEDS: Ipratropium/Albuterol Neb 3 ML IH SCH ×4 (03:29→22:33)
[2016-05-31 06:38] LABS: Basophils # 0.1 K/mcL (0.0-0.2); Basophils % 0.7 %; Eosinophils # 0.2 K/mcL (0.0-0.6); Eosinophils % 2.8 %; Hematocrit 47.8 % (37.5-50.1); Immature Granulocytes % 0.5 % (0-4); Lymphocytes # 3.1 K/mcL (0.6-4.6); Mean Corpuscular HGB Conc 32.6 g/dL (31.6-35.5); Mean Corpuscular Hemoglobin 29.7 pg (28.0-33.3); Mean Platelet Volume 9.2 fL (9.4-12.4); Monocytes # 0.6 K/mcL (0.0-1.3); Monocytes % 6.7 %; Neutrophils # 4.3 K/mcL (1.6-8.9); Platelet Count 160 K/mcL (140-400); Red Blood Count 5.25 M/mcL (4.19-5.50); Segmented Neutrophils % 52.3 %; VBG HCO3 27.8 mEq/L (21-27); VBG PH 7.32 pH Units (7.32-7.42)
[2016-05-31 06:42] LABS: Hemoglobin 15.6 g/dL (12.9-16.9)
[2016-05-31 06:44] LABS: INR 1.6
[2016-05-31 06:46] LABS: Activated Partial Thrombo Time 28.4 Seconds (26.0-36.0); Ionized Calcium 1.12 mmol/L (1.15-1.35)
[2016-05-31 06:52] LABS: Albumin 3.7 g/dL (3.5-5.0); Albumin/Globulin Ratio 1.2 (1.1-2.2); Bilirubin,Total 0.4 mg/dL (0.2-1.2); Calcium 9.3 mg/dL (8.6-10.8); Chol/HDL Ratio 3.6 (0-4.9); Globulin 3.2 g/dL (2.4-3.5); Magnesium 2.7 mg/dL (1.6-2.6); Phosphorous 3.5 mg/dL (2.3-4.7); Potassium 3.7 mEq/L (3.5-4.5); Total Protein 6.9 g/dL (6.0-8.3)
[2016-05-31 07:13] LABS: Thyroid Stimulating Hormone 1.681 mcIU/mL (0.350-4.840)
[2016-05-31] MEDS ORDERED: Doxycycline 100 MG CAPSULE PO SCH (09:00)
[2016-05-31] MEDS: Furosemide 20 MG TABLET PO SCH (10:09)
[2016-05-31] MEDS: lamoTRIgine 25 MG TABLET PO SCH (10:10)
[2016-05-31] MEDS: Nicotine 21 MG PATCH.TD24 TD SCH (10:10)
--- NOTE | 2016-05-31 11:34 | Cardiology Consult Note ---
Date of Encounter: 05/31/16 Time of Encounter: 11:32 Assessment and Plan (1) Near syncope Current Visit: Yes Status: Acute Patient's primary complaint upon my evaluation is a near syncopal event, which occurred after standing up or to the bathroom. He describes associated palpitations and tachycardia. His symptoms are very suggestive of a vasovagal event. Currently, he denies any lightheadedness, near syncope, or syncopal symptoms. Recommend hydration. Echocardiogram pending. (2) Bradycardia Current Visit: Yes Status: Acute Patient noted to have bradycardia at rest, heart rate 50s and 60s. During nocturnal hours, heart rate 30s and 40s while sleeping. Patient placed on a dopamine drip. Recommend weaning dopamine drip to off. Monitor heart rate. Avoid negative chronotropic agents for now. Further recommendations to follow. (3) Coronary artery disease Current Visit: Yes Status: Acute [place] CAD, prior PCI. Continue aspirin and statin. Hold beta rosemarie for now given bradycardia. Again, no chest pain reported upon my evaluation. He did report palpitations with standing. Serial troponins have been negative. Echocardiogram pending. Qualifiers: Coronary Disease-Associated Artery/Lesion type: unspecified vessel or lesion type [place] vs. transplanted heart: [place] heart Associated angina: with unspecified angina Qualified Code(s): I25.119 - Atherosclerotic heart disease of [place] coronary artery with unspecified angina pectoris Discussion w patient/family: The assessment and plan as outlined above was discussed with the patient and/or family members who expressed understanding and agreement. All questions were answered. Thank you for involving us in the care of your patient. Please call with any questions. History of Present Illness Consult date: 05/31/16 Requesting physician: Rosa Roberts Consult reason: Bradycardia Chief complaint: Near syncope History of present illness: Mr. Jaffe is a 76 year old male who presents to the hospital with complaints of near syncope. Upon my evaluation, patient reports he was using the restroom. After stating that, he became profoundly lightheaded and near syncopal. Reports tachycardia during this event. Denies chest pain at this time. He does report chronic abdominal pain related to prior issues and previous surgeries. He does report a history of CAD, and remote PCI. Overnight, resting heart rate noted to be in the 50s. With sleeping, heart rate poorly decreased to 30's. Patient placed on dopamine, which is currently at 5 mcg/kg/m. Past Med Surg Social Fam HX - Past Medical History Medical history: aortic aneurysm, asthma, COPD, coronary artery disease, CVA, DVT, GERD, hyperlipidemia, hypertension, myocardial infarction, thyroid disease Psychiatric history: no psych history, bipolar, depression - Past Surgical History Surgical History: angioplasty/stent, appendectomy, cholecystectomy, other ( duodenal ulcer, had portion of stomach removed, had billroth tube ) - Social History Smoking Status: Former smoker Smokeless Tobacco Status: No Alcohol use: none Drug use: none - Family History Daughter Adopted: [place]: Mirna Mcgregor Age: 42 Living Status: Still Living Hx Family Cardiac Disorders: No Hx Family Respiratory Disorders: No Hx Family Cancer: No Hx Family GI Disorders: Yes (Choli) Hx Family Genitourinary Disorders: No Hx Family Endocrine Disorder: No Hx Family Musculoskeletal Disorders: No Hx Family Neuromuscular Disorders: No Hx Family Neurologic Disorders: No Hx Family HEENT Disorders: No Hx Family Autoimmune Disorders: No Hx Family Reproductive Disorders: No Hx Family Psychosocial Disorders: No Hx Family Medical Disorders: No Medications and Allergies Atorvastatin [Lipitor] 20 mg PO DAILY 04/10/15 [History] Escitalopram [Lexapro] 40 mg PO DAILY 04/10/15 [History] Furosemide [Lasix] 20 mg PO DAILY 04/10/15 [History] Levothyroxine [Synthroid] 75 mcg PO DAILY 04/10/15 [History] Mirtazapine [Remeron] 15 mg PO HS 04/10/15 [History] Warfarin [Coumadin] 5 mg PO MOFR 04/10/15 [History] Lamotrigine [Lamictal] 25 mg PO DAILY 08/03/15 [History] Buspirone HCl [Buspar] 7.5 mg PO BID 05/30/16 [History] Cyanocobalamin (Vitamin B-12) [Vitamin B12] 1,000 mcg PO DAILY 05/30/16 [History ] Melatonin/Pyridoxine HCl (B6) [Melatonin 3 mg Tablet] 3 mg PO HS 05/30/16 [ History] Omeprazole [PriLOSEC] 20 mg PO DAILY 05/30/16 [History] Polyethylene Glycol 3350 [MiraLAX] 17 gm PO DAILY 05/30/16 [History] Warfarin [Coumadin] 2.5 mg PO SUTUWETHSA 05/30/16 [History] Allergies Iodinated Contrast Media - Oral and [Iodinated Contrast Media - IV Dye] Allergy (Verified 05/30/16 17:48) Anaphylaxis diazepam [From Valium] Adverse Reaction (Verified 05/30/16 22:02) Confusion lisinopril Adverse Reaction (Verified 05/30/16 22:02) Cough All Systems Review: A 10-system review of systems was performed and is negative for pertinent findings except as documented above in the HPI. - Constitutional Constitutional: weakness - Cardiovascular Cardiovascular: as per HPI, lightheadedness, palpitations, rapid heart rate - Gastrointestinal Gastrointestinal: abdominal pain Physical Examination Vital Signs, Last 4 Hours Pulse Resp BP Pulse Ox 05/31/16 11:30 75 108/54 05/31/16 10:26 16 95 05/31/16 10:02 70 134/84 05/31/16 09:55 95 05/31/16 09:15 74 107/84 05/31/16 08:50 71 136/62 General: Conversant, No Apparent Distress HEENT: Atraumatic, Normocephaly, Mucus Membranes Moist Neck: No JVD, Normal carotid pulses Cardiac: Reg Rate and Rhythm, Normal S1 and S2, No Murmur Lungs: Normal Breath Sounds, No Wheeze, Rales, Rhonchi Neuro: Alert and responsive, No focal deficits noted Abdomen: Soft, Non-Tender Skin: No rashes noted on visualized skin Musculoskeletal: No Chest Wall Tenderness Extremities: No Clubbing, No Cyanosis, No Edema Results 05/31/16 06:26 05/31/16 06:26 Lab Results 05/30/16 05/31/16 05/31/16 23:08 06:26 06:26 WBC 8.3 Hgb 15.6 D Hct 47.8 Plt Count 160 INR 1.6 APTT 28.4 Sodium Potassium Chloride Carbon Dioxide BUN Creatinine Glucose Calcium Magnesium Total Bilirubin AST ALT Alkaline Phosphatase Troponin I 0.01 B-Natriuretic Peptide TSH 05/31/16 05/31/16 05/31/16 06:26 06:26 06:26 WBC Hgb Hct Plt Count INR APTT Sodium 143 Potassium 3.7 Chloride 106 Carbon Dioxide 24 BUN 17 Creatinine 1.69 H Glucose 105 H Calcium 9.3 Magnesium 2.7 H Total Bilirubin 0.4 AST 15 ALT 16 Alkaline Phosphatase 89 Troponin I 0.01 B-Natriuretic Peptide 410 H TSH 1.681 - Imaging and Cardiology Echo: report reviewed (Echocardiogram 09/16/2014: LVEF 55-60%. Moderate diastolic dysfunction. Mild aortic regurgitation. RVSP normal obtained.) - EKG Interpretation EKG results cardiology: personally reviewed Consult Discharge Plan - Plan Referrals: Marco Antonio Pierre DO [Primary Care Provider] -
--- NOTE | 2016-05-31 12:12 | Pulmonology Consult Note ---
Date of Encounter: 05/31/16 Time of Encounter: 12:12 Assessment and Plan (1) Abnormal CT scan, chest Current Visit: Yes Status: Acute I reviewed his CT scan of the chest which revealed fairly subtle bilateral groundglass opacities. I suspect these radiographic abnormalities are not of clinical significance. I see no clinical or radiographic evidence of pneumonia. I recommend discontinuing antibiotics. Discussed with primary service. (2) Bradycardia Current Visit: Yes Status: Acute He is currently on dopamine drip, which is being weaned off. Holding AV ciara blocking agents. (3) Near syncope Current Visit: Yes Status: Acute Clinically this is consistent with a vagal episode. Cardiology is following regarding near syncope and bradycardia. No further recommendations from a pulmonary perspective. We will sign off. Please call for questions. History of Present Illness Consult date: 05/31/16 Requesting physician: Collin Nice Reason for consult: abnormal CXR/CT Chief complaint: near syncope History of present illness: 76-year-old white male with a medical history significant for coronary artery disease who presents for evaluation of a near syncopal episode and bradycardia. Patient reports that he had been in his usual state of health. He was sitting on the toilet and when he went to stand he felt deep palpitations and pressure in his chest and nearly passed out. He went into another room and sat down, and these feeling subsided. He denies any cough or sputum production. No fever /chills. No dyspnea. Past Med Surg Social Fam HX - Past Medical History Medical history: aortic aneurysm, asthma, COPD, coronary artery disease, CVA, DVT, GERD, hyperlipidemia, hypertension, myocardial infarction, thyroid disease Psychiatric history: no psych history, bipolar, depression - Past Surgical History Surgical History: angioplasty/stent, appendectomy, cholecystectomy, other ( duodenal ulcer, had portion of stomach removed, had billroth tube ) - Social History Smoking Status: Former smoker Smokeless Tobacco Status: No Alcohol use: none Drug use: none - Family History Daughter Adopted: [place]: Mirna Mcgregor Age: 42 Living Status: Still Living Hx Family Cardiac Disorders: No Hx Family Respiratory Disorders: No Hx Family Cancer: No Hx Family GI Disorders: Yes (Choli) Hx Family Genitourinary Disorders: No Hx Family Endocrine Disorder: No Hx Family Musculoskeletal Disorders: No Hx Family Neuromuscular Disorders: No Hx Family Neurologic Disorders: No Hx Family HEENT Disorders: No Hx Family Autoimmune Disorders: No Hx Family Reproductive Disorders: No Hx Family Psychosocial Disorders: No Hx Family Medical Disorders: No Medications and Allergies Atorvastatin [Lipitor] 20 mg PO DAILY 04/10/15 [History] Escitalopram [Lexapro] 40 mg PO DAILY 04/10/15 [History] Furosemide [Lasix] 20 mg PO DAILY 04/10/15 [History] Levothyroxine [Synthroid] 75 mcg PO DAILY 04/10/15 [History] Mirtazapine [Remeron] 15 mg PO HS 04/10/15 [History] Warfarin [Coumadin] 5 mg PO MOFR 04/10/15 [History] Lamotrigine [Lamictal] 25 mg PO DAILY 08/03/15 [History] Buspirone HCl [Buspar] 7.5 mg PO BID 05/30/16 [History] Cyanocobalamin (Vitamin B-12) [Vitamin B12] 1,000 mcg PO DAILY 05/30/16 [History ] Melatonin/Pyridoxine HCl (B6) [Melatonin 3 mg Tablet] 3 mg PO HS 05/30/16 [ History] Omeprazole [PriLOSEC] 20 mg PO DAILY 05/30/16 [History] Polyethylene Glycol 3350 [MiraLAX] 17 gm PO DAILY 05/30/16 [History] Warfarin [Coumadin] 2.5 mg PO SUTUWETHSA 05/30/16 [History] Allergies Iodinated Contrast Media - Oral and [Iodinated Contrast Media - IV Dye] Allergy (Verified 05/30/16 17:48) Anaphylaxis diazepam [From Valium] Adverse Reaction (Verified 05/30/16 22:02) Confusion lisinopril Adverse Reaction (Verified 05/30/16 22:02) Cough All Systems: A 10-system review of systems was performed and is negative for pertinent findings except as documented above in the HPI. Physical Examination Vital Signs: Vital Signs, Last 4 Hours Temp Pulse Resp BP Pulse Ox 05/31/16 11:32 98.5 F 75 16 118/53 95 05/31/16 11:30 75 108/54 05/31/16 10:26 16 95 05/31/16 10:02 70 134/84 05/31/16 09:55 95 05/31/16 09:15 74 107/84 05/31/16 08:50 71 136/62 General: no acute distress Eyes: nonicteric ENT: oropharynx moist Neck: supple, no lymphadenopathy Lungs: Clear to auscultation bilaterally Cardiovascular: regular rate and rhythm Gastrointestinal: normoactive bowel sounds, soft, non-tender, non-distended Integumentary: normal Extremities: no cyanosis, no edema Musculoskeletal: no deformities Neuro: normal mental status, non-focal exam Psych: mood appropriate, affect normal Results - Laboratory Findings CBC and BMP: 05/31/16 06:26 05/31/16 06:26 PT/INR, D-dimer PT 18.0 Seconds (9.4-12.1) H 05/31/16 06:26 Abnormal lab findings: Abnormal lab results MPV 9.2 fL (9.4-12.4) L 05/31/16 06:26 PT 18.0 Seconds (9.4-12.1) H 05/31/16 06:26 VBG pCO2 54 mmHg (41-51) H 05/31/16 06:26 VBG pO2 46 mmHg (25-40) H 05/31/16 06:26 VBG HCO3 27.8 mEq/L (21-27) H 05/31/16 06:26 Creatinine 1.69 mg/dL (0.72-1.25) H 05/31/16 06:26 Est GFR ( Amer) 48 (> 60) L 05/31/16 06:26 Est GFR (Non-Af Amer) 40 (> 60) L 05/31/16 06:26 Glucose 105 mg/dL (70-99) H 05/31/16 06:26 Ionized Calcium 1.12 mmol/L (1.15-1.35) L 05/31/16 06:26 Magnesium 2.7 mg/dL (1.6-2.6) H 05/31/16 06:26 B-Natriuretic Peptide 410 pg/mL (0-100) H 05/31/16 06:26 Triglycerides 181 mg/dL (< 150) H 05/31/16 06:26 VLDL Cholesterol, Calc 36 mg/dL (< 31) H 05/31/16 06:26 Urine pH 8.5 pH Units (5.0-8.0) H 05/31/16 00:15 Urine Protein 30 mg/dL (Neg-Trace) H 05/31/16 00:15 - Clinical Findings Intake & Output: Intake & Output 05/30/16 05/31/16 05/31/16 23:59 07:59 15:59 Intake Total 153.0 / 153.0 117.5 / 117.5 Output Total 300 / 300 950 / 950 Balance -147.0 / -147.0 -832.5 / -832.5 Weight 78.5 kg Consult Discharge Plan - Plan Referrals: Marco Antonio Pierre, [Primary Care Provider] -
[2016-05-31] MEDS ORDERED: 0.9 % Sodium Chloride 500 ML IV ONE (13:00)
[2016-05-31] MEDS: 0.9 % Sodium Chloride 1,000 ML IVC SCH (13:53)
--- NOTE | 2016-05-31 15:09 | Internal Med Progress Note ---
Date of Encounter: 05/31/16 Time of Encounter: 09:50 - Assessment and plan (1) Near syncope Current Visit: Yes Status: Acute Assessment and plan: Likely related to bradycardia and orthostasis. Clinically better. Continue gentle IV hydration. Cardiology following. (2) Bradycardia Current Visit: Yes Status: Acute Assessment and plan: Started on dopamine. Heart rate has improved now. Will wean off dopamine. Follow cardiology recommendations. Continue telemetry monitoring (3) Chest pain, rule out acute myocardial infarction Current Visit: Yes Status: Acute Assessment and plan: This appears to be more epigastric in origin with heartburn and gastroesophageal reflux symptoms. Will start patient on twice-daily proton pump inhibitor. Also continue Maalox for symptomatic treatment. (4) Chronic kidney disease (CKD) Current Visit: Yes Status: Chronic Assessment and plan: Creatinine is at baseline. Will monitor renal function. Avoid nephrotoxic agents if possible. Qualifiers: Chronic kidney disease stage: stage 3 (moderate) Qualified Code(s): N18.3 - Chronic kidney disease, stage 3 (moderate) (5) Community acquired pneumonia Current Visit: Yes Status: Ruled-out (6) Coronary artery disease Current Visit: Yes Status: Chronic Assessment and plan: Continue aspirin, statin. Holding beta rosemarie due to bradycardia. Qualifiers: Coronary Disease-Associated Artery/Lesion type: unspecified vessel or lesion type [place] vs. transplanted heart: [place] heart Associated angina: with unspecified angina Qualified Code(s): I25.119 - Atherosclerotic heart disease of [place] coronary artery with unspecified angina pectoris (7) History of DVT of lower extremity Current Visit: No Status: Acute Assessment and plan: On Coumadin. (8) Hyperlipidemia Current Visit: Yes Status: Chronic Assessment and plan: On statin. Lipid profile shows well-controlled cholesterol levels with LDL of 72 and HDL of 42. Qualifiers: Hyperlipidemia type: mixed hyperlipidemia Qualified Code(s): E78.2 - Mixed hyperlipidemia - Subjective Interval history: Patient complains of epigastric pain and heartburn with a feeling of acid reflux up into his throat. He takes Mylanta at home that seems to help with his symptoms but he has to take a lot of fluid. Denies any dizziness or lightheadedness. No nausea or vomiting. No cough or sputum production - Constitutional Vitals: Temp Pulse Resp BP Pulse Ox 98.5 F 56 16 109/51 95 05/31/16 11:32 05/31/16 14:30 05/31/16 11:32 05/31/16 14:30 05/31/16 11:32 General appearance: Present: cooperative, A&O X 3, pleasant - Neck Neck exam general surgery: Present: supple, trachea midline. Absent: lymphadenopathy - Respiratory Respiratory exam: Present: CTAB. Absent: accessory muscle use, rales, rhonchi, wheezes - Cardiovascular Cardiovascular exam: Present: RRR, +S1, +S2. Absent: diastolic murmur, gallop, rubs, systolic murmur - GI/Abdominal GI/Abdominal exam: Present: normal bowel sounds, soft, no peritoneal signs. Absent: distended, tenderness - Extremities Exam Extremities exam: Present: warm, radial pulses palpable and symetrical. Absent : calf tenderness, cyanotic, pedal edema - Neurological Exam Neurological exam: Present: alert, oriented X3, no focal deficits, strengths equal and symetr throughout. Absent: facial droop, speech deficit - Skin Skin exam: Present: dry, intact Internal Medicine: Result - Labs CBC & Chem 7: 05/31/16 06:26 05/31/16 06:26 - ABG Interpretation ABG results: PT/INR, D-dimer PT 18.0 Seconds (9.4-12.1) H 05/31/16 06:26 Consult Discharge Plan - Plan Referrals: Marco Antonio Pierre, DO [Primary Care Provider] - - Attending Attestation This document has been at least partially created by [employer] voice recognition technology by Dr. Nice. Errors in grammar, wording or other phrases may exist. If errors are found after the documentation is signed, they will be addressed individually in the addendum section of this document when appropriate. Medical Decision Making - MDM Narrative Medical decision making narrative: High risk for complications due to dopamine use - Medical Records Medical records reviewed: Yes I reviewed the patient's medical records. - Lab Data Lab results reviewed: Yes I reviewed the patient's lab results. Result diagrams: 05/31/16 06:26 05/31/16 06:26
[2016-05-31] MEDS: Pantoprazole 40 MG VIAL IVP SCH (17:21)
[2016-05-31] MEDS ORDERED: Warfarin perPT PO PRN (18:00)
--- NOTE | 2016-05-31 18:48 | ECHO - Doppler Report ---
Echocardiogram Name: Brenda Jaffe Date of Study: 05/31/2016 Date: 1940 Ht: 66.0 in Medical Record#: [id number] Age: 76 Wt: 173.0 lb Gender: Male BSA: 1.88 Order #: [id number] Location: [facility] Room #: 2N13 Reading Physician: Jayden Bui DO, BRANT, MIK CASTREJON Director Of Industrial Relations: Iain Root RDCS Ordering Physician: Rosa Roberts DO Primary Physician: None Indications: Chest pain Impressions: LVEF 60-65%. Normal LV chamber size, wall thickness and function. Moderate left ventricular diastolic dysfunction. Normal right ventricular structure and function. Mild aortic regurgitation. No evidence of pulmonary hypertension. Left Ventricular Wall Motion: Rest Echo Findings All wall segments showed normal motion. Findings: Study Quality * Technically adequate exam. ECG Findings * Normal sinus rhythm. Left Ventricle * LVEF 60-65%. * Normal LV chamber size, wall thickness and function. * Moderate left ventricular diastolic dysfunction. Right Ventricle * Normal right ventricular structure and function. Left Atrium * Mildly dilated left atrium. Right Atrium * Normal right atrial size. Interatrial Septum * No evidence of PFO by color Doppler. Aortic Valve * Trileaflet aortic valve. * Mildly sclerotic aortic valve leaflets. * No aortic stenosis. * Mild aortic regurgitation. Mitral Valve * Normal mitral valve structure and function. * No mitral stenosis. * Trace mitral regurgitation. Tricuspid Valve * Normal tricuspid valve structure and function. * Trace tricuspid regurgitation. * No evidence of pulmonary hypertension. Pulmonic Valve * Normal pulmonic valve structure and function. * Trace pulmonic regurgitation. Aorta * Normally sized aortic root. Pericardium * The pericardium appears normal. IVC * Normal IVC dimensions and inspiratory collapse. Pulmonary Artery * Normal visualized portions of the main pulmonary artery. History Hypertension Hypercholesteremia Family History of CAD History of CAD/PTCA Myocardial Infarction 09/16/14 a Previous Echo was performed. Measurements: BP: 106/ 60 2D Normal Values RVIDd: 3.50 cm <2.7 cm IVSd: .90 cm 0.6 - 1.0 cm LVIDd: 4.90 cm 3.7 - 5.6 cm LVPWd: .90 cm 0.6 - 1.1 cm LVIDs: 3.10 cm 1.5 - 3.6 cm AO: 2.80 cm < 4.0 cm LA: 3.90 cm 2.0 - 4.0cm %FS: 36.70 cm >25 % LA volume: 58 Mitral Valve Peak E:1.07 m/sec Peak A:.76 m/sec E/A Ratio:1.4 Peak E' Lat Robert:7.99 cm/s Peak E' Med Robert:5.46 cm/s E/E' Lat Ratio:13.4 E/E' Med Ratio:19.6 Tricuspid Valve TV Regurg Peak Grad: 22.00mmHg TV Regurg Peak Robert: 2.32m/sec Updated by Jayden Bui DO, FACAaron, LUCÍA, MIK on 05/31/2016 6:42:57 PM electronically signed on 05/31/2016 6:43:23 PM with status of Final Wall Motion Lopez: 1=Normal, 2=Hypokinesis, 3=Akinesis, 4=Dyskinesis, 5=Aneurysmal, 6=Hyperkinetic, X=Not Visualized (Blank)=Missing
[2016-05-31] MEDS: *HR* OxyCODONE Immed Rel 5 MG TABLET PO PRN (21:04)
[2016-06-01] MEDS: *HR* Warfarin 2.5 MG TABLET PO SCH (03:06)
[2016-06-01] MEDS: 0.9 % Sodium Chloride 1,000 ML IVC SCH (03:16)
[2016-06-01] MEDS: Ipratropium/Albuterol Neb 3 ML IH SCH ×4 (03:39→21:24)
[2016-06-01 04:37] LABS: INR 1.7; Prothrombin Time 18.6 Seconds (9.4-12.1)
[2016-06-01 04:46] LABS: Basophils % 0.3 %; Eosinophils # 0.1 K/mcL (0.0-0.6); Eosinophils % 1.6 %; Immature Granulocytes % 0.3 % (0-4); Lymphocytes # 3.1 K/mcL (0.6-4.6); Lymphocytes % 34.3 %; Mean Corpuscular HGB Conc 32.3 g/dL (31.6-35.5); Mean Corpuscular Hemoglobin 29.1 pg (28.0-33.3); Mean Corpuscular Volume 90.1 fL (83.0-100.0); Monocytes # 0.5 K/mcL (0.0-1.3); Monocytes % 5.7 %; Neutrophils # 5.2 K/mcL (1.6-8.9); Platelet Count 163 K/mcL (140-400); Red Blood Count 4.77 M/mcL (4.19-5.50); Red Cell Distribution Width 13.9 % (11.5-14.5); Segmented Neutrophils % 57.8 %
[2016-06-01 04:47] LABS: Hemoglobin 13.9 g/dL (12.9-16.9)
[2016-06-01 04:59] LABS: Potassium 3.7 mEq/L (3.5-4.5)
[2016-06-01] MEDS ORDERED: 0.9 % Sodium Chloride 1,000 ML IVC SCH (07:30)
[2016-06-01] MEDS: Pantoprazole 40 MG VIAL IVP SCH ×2 (08:57→17:49)
[2016-06-01] MEDS: lamoTRIgine 25 MG TABLET PO SCH (09:00)
[2016-06-01] MEDS: Furosemide 20 MG TABLET PO SCH (09:00)
--- NOTE | 2016-06-01 10:18 | Cardiology Progress Note ---
Date of Encounter: 06/01/16 Time of Encounter: 10:15 Assessment and Plan (1) Near syncope Current Visit: Yes Status: Acute Near syncopal event, which occurred after standing up from the toilet. His symptoms are very suggestive of a vasovagal event. Reports chronic abdominal issues, resulting in frequent diarrhea, and poor PO intake. Hydration has helped his sympoms and Cr improved. Echocardiogram demonstrated normal LV function. (2) Bradycardia Current Visit: Yes Status: Acute Patient noted to be bradycardic at rest on night of admission, heart rate 50s and 60s. Nocturnal heart rate 30s and 40s while sleeping. Patient placed on a dopamine drip. Yesterday, dopamine transiently stopped and HR stable in 60s or higher. Dopamine now being used for hypotension. Continue to avoid negative chronotropes. Continue hydration. Wean dopamine as tolerated. (3) Coronary artery disease Current Visit: Yes Status: Chronic [place] CAD, prior PCI. Continue aspirin and statin. Hold beta rosemarie for now given bradycardia. Preserved LVEF on echocardiogram. No new recommendations. Qualifiers: Coronary Disease-Associated Artery/Lesion type: unspecified vessel or lesion type [place] vs. transplanted heart: [place] heart Associated angina: with unspecified angina Qualified Code(s): I25.119 - Atherosclerotic heart disease of [place] coronary artery with unspecified angina pectoris Discussion w patient/family: The assessment and plan as outlined above was discussed with the patient and/or family members who expressed understanding and agreement. All questions were answered. Thank you for involving us in the care of your patient. Please call with any questions. Subjective Principal diagnosis: Near syncope Interval history: Patient seen and examined earlier this morning. Case discussed with nursing and patient. Cr has improved with hydration. Patient reports chronic abdominal issues and prior abdominal surgery. Admits to somewhat poor po intake. Presented with vasovagal type event after standing from toilet. Initially, HR low. Placed on dopamine drip. Dopamine drip stopped yesterday afternoon, HR stable in 60s to 70s, but BP hypotensive. Dopamine resumed. BP this morning 140s systolic. Patient feels good - denies chest pain, discomfort, nausea, near syncope, etc. Objective Vital Signs, Last 4 Hours Temp Pulse Resp BP Pulse Ox 06/01/16 09:05 73 107/59 98 06/01/16 09:00 87 121/59 06/01/16 08:55 77 79/44 06/01/16 08:48 74 95/59 06/01/16 08:42 72 147/70 06/01/16 08:00 70 139/62 06/01/16 07:23 98.5 F 66 16 113/60 97 06/01/16 07:00 68 113/60 General: Conversant, No Apparent Distress HEENT: Atraumatic, Normocephaly, Mucus Membranes Moist Neck: No JVD, Normal carotid pulses Cardiac: Reg Rate and Rhythm, Normal S1 and S2, No Murmur Lungs: Normal Breath Sounds, No Wheeze, Rales, Rhonchi Neuro: Alert and responsive, No focal deficits noted Abdomen: Soft, Non-Tender Skin: No rashes noted on visualized skin Musculoskeletal: No Chest Wall Tenderness Extremities: No Clubbing, No Cyanosis, No Edema Results 06/01/16 04:22 06/01/16 04:22 Lab Results 06/01/16 06/01/16 06/01/16 04:22 04:22 04:22 WBC 9.0 Hgb 13.9 D Hct 43.0 Plt Count 163 INR 1.7 Sodium 141 Potassium 3.7 Chloride 108 Carbon Dioxide 21 BUN 11 Creatinine 1.57 H Glucose 138 H Calcium 9.0 - Imaging and Cardiology Echo: report reviewed - EKG Interpretation EKG results cardiology: personally reviewed Consult Discharge Plan - Plan Referrals: Marco Antonio Pierre DO [Primary Care Provider] -
--- NOTE | 2016-06-01 12:23 | Internal Med Progress Note ---
Date of Encounter: 06/01/16 Time of Encounter: 10:10 - Assessment and plan (1) Near syncope Current Visit: Yes Status: Acute Assessment and plan: Likely related to orthostasis as patient does appear to be dehydrated. He is receiving IV hydration. We will continue to monitor blood pressure closely. Hold antihypertensives. (2) Bradycardia Current Visit: Yes Status: Acute Assessment and plan: Improving. Currently back on dopamine because of hypotension. We will continue to monitor heart rate closely. Cardiology following (3) Chest pain, rule out acute myocardial infarction Current Visit: Yes Status: Resolved Assessment and plan: Chest pain has resolved. Most likely pain from heartburn and GI related pain. (4) Chronic kidney disease (CKD) Current Visit: Yes Status: Chronic Assessment and plan: Creatinine slightly better today. Continue gentle IV hydration Qualifiers: Chronic kidney disease stage: stage 3 (moderate) Qualified Code(s): N18.3 - Chronic kidney disease, stage 3 (moderate) (5) Community acquired pneumonia Current Visit: Yes Status: Ruled-out (6) Coronary artery disease Current Visit: Yes Status: Chronic Assessment and plan: Resume aspirin, continue statin. Qualifiers: Coronary Disease-Associated Artery/Lesion type: unspecified vessel or lesion type [place] vs. transplanted heart: [place] heart Associated angina: with unspecified angina Qualified Code(s): I25.119 - Atherosclerotic heart disease of [place] coronary artery with unspecified angina pectoris (7) History of DVT of lower extremity Current Visit: No Status: Acute Assessment and plan: On Coumadin (8) Hyperlipidemia Current Visit: Yes Status: Chronic Assessment and plan: On statin Qualifiers: Hyperlipidemia type: mixed hyperlipidemia Qualified Code(s): E78.2 - Mixed hyperlipidemia - Subjective Interval history: Patient is feeling much better today. Epigastric pain is improving. He has been hypotensive overnight and has been restarted on dopamine. Receiving intravenous fluids. Denies any dizziness or lightheadedness at this time. No palpitations. - Constitutional Vitals: Temp Pulse Resp BP Pulse Ox 98.4 F 60 17 105/54 98 06/01/16 11:17 06/01/16 11:36 06/01/16 11:17 06/01/16 11:36 06/01/16 11:17 General appearance: Present: cooperative, mild distress, A&O X 3, pleasant, answers questions appropriately - Neck Neck exam general surgery: Present: supple, trachea midline. Absent: lymphadenopathy - Respiratory Respiratory exam: Present: CTAB. Absent: accessory muscle use, rales, rhonchi, wheezes - Cardiovascular Cardiovascular exam: Present: RRR, +S1, +S2. Absent: diastolic murmur, gallop, rubs, systolic murmur - GI/Abdominal GI/Abdominal exam: Present: normal bowel sounds, soft, no peritoneal signs. Absent: distended, tenderness - Extremities Exam Extremities exam: Present: warm, radial pulses palpable and symetrical. Absent : calf tenderness, cyanotic, pedal edema - Skin Skin exam: Present: dry, intact Internal Medicine: Result - Labs CBC & Chem 7: 06/01/16 04:22 06/01/16 04:22 Labs: Short CBC 06/01/16 Range/Units 04:22 WBC 9.0 (4.3-11.1) K/mcL Hgb 13.9 D (12.9-16.9) g/dL Hct 43.0 (37.5-50.1) % Plt Count 163 (140-400) K/mcL Neutrophils # 5.2 (1.6-8.9) K/mcL BMP 06/01/16 04:22 Sodium 141 Potassium 3.7 Chloride 108 Carbon Dioxide 21 BUN 11 Creatinine 1.57 H Glucose 138 H Calcium 9.0 - ABG Interpretation ABG results: PT/INR, D-dimer PT 18.6 Seconds (9.4-12.1) H 06/01/16 04:22 Consult Discharge Plan - Plan Referrals: Marco Antonio Pierre, DO [Primary Care Provider] - - Attending Attestation This document has been at least partially created by [employer] recognition technology by Dr. Nice. Errors in grammar, wording or other phrases may exist. If errors are found after the documentation is signed, they will be addressed individually in the addendum section of this document when appropriate. Medical Decision Making - MDM Narrative Medical decision making narrative: High risk for complications as patient is receiving dopamine for blood pressure support. - Lab Data Lab results reviewed: Yes I reviewed the patient's lab results. Result diagrams: 06/01/16 04:22 06/01/16 04:22 Lab Results 06/01/16 06/01/16 06/01/16 Range/Units 04:22 04:22 04:22 WBC 9.0 (4.3-11.1) K/mcL RBC 4.77 (4.19-5.50) M/mcL Hgb 13.9 D (12.9-16.9) g/dL Hct 43.0 (37.5-50.1) % MCV 90.1 (83.0-100.0) fL MCH 29.1 (28.0-33.3) pg MCHC 32.3 (31.6-35.5) g/dL RDW 13.9 (11.5-14.5) % Plt Count 163 (140-400) K/mcL MPV 9.0 L (9.4-12.4) fL Immature Gran % 0.3 (0-4) % Seg Neutrophils % 57.8 % Lymphocytes % 34.3 % Monocytes % 5.7 % Eosinophils % 1.6 % Basophils % 0.3 % Neutrophils # 5.2 (1.6-8.9) K/mcL Lymphocytes # 3.1 (0.6-4.6) K/mcL Monocytes # 0.5 (0.0-1.3) K/mcL Eosinophils # 0.1 (0.0-0.6) K/mcL Basophils # 0.0 (0.0-0.2) K/mcL PT 18.6 H (9.4-12.1) Seconds INR 1.7 Sodium 141 (136-145) mEq/L Potassium 3.7 (3.5-4.5) mEq/L Chloride 108 (98-109) mEq/L Carbon Dioxide 21 (19-29) mEq/L BUN 11 (8-26) mg/dL Creatinine 1.57 H (0.72-1.25) mg/dL Est GFR ( Amer) 52 L (> 60) Est GFR (Non-Af Amer) 43 L (> 60) BUN/Creatinine Ratio 7 (6-26) Glucose 138 H (70-99) mg/dL Calculated Osmolality 294 (280-300) Calcium 9.0 (8.6-10.8) mg/dL
[2016-06-01] MEDS ORDERED: 0.9 % Sodium Chloride 500 ML IVC ONE (12:27)
[2016-06-01] MEDS ORDERED: 0.9 % Sodium Chloride 1,000 ML IV ONE (13:55)
[2016-06-01] MEDS: Nicotine 21 MG PATCH.TD24 TD SCH (13:58)
[2016-06-01] MEDS: Aspirin Enteric Coated 81 MG Tablet PO SCH (14:07)
[2016-06-01] MEDS ORDERED: 0.9 % Sodium Chloride 1,000 ML IV SCH (14:15)
--- NOTE | 2016-06-01 15:00 | Event Note ---
Date of Encounter: 06/01/16 Time of Encounter: 14:59 Patient seen and examined again with nursing at bedside. BP higher in right arm - 120s/70s. Dopamine turned off. Negative fluid balance noted. Nursing instructed to give 1L bolus and given 1 additional liter of NS at 100 cc /hr.
--- NOTE | 2016-06-01 19:32 | Electrocardiograph Report ---
[facility] Test Date: 2016-05-30 Pat Name: Brenda Jaffe Department: 103 Room: 2N13 Gender: M [employer]: VALDEMAR : 1940 Requested By: Yusuf Armstrong Order Number: [id number] Reading MD: Jayden Bui DO Measurements Intervals [place] Rate: 57 P: 14 MO: 129 QRS: 35 QRSD: 102 T: 38 QT: 473 QTc: 468 Interpretive Statements Sinus bradycardia Prolonged QT interval Nonspecific ST-T changes Electronically Signed On 06-01-16 19:31:38 EST by Jayden Bui DO
[2016-06-01] MEDS: Mirtazapine 15 MG TABLET PO SCH (19:51)
[2016-06-01] MEDS: *HR* OxyCODONE Immed Rel 5 MG TABLET PO PRN (19:51)
[2016-06-01] MEDS: Melatonin 3 MG TABLET PO SCH (19:51)
[2016-06-02] MEDS: Ipratropium/Albuterol Neb 3 ML IH SCH ×4 (03:44→15:58)
[2016-06-02 05:24] LABS: Ionized Calcium 1.19 mmol/L (1.15-1.35)
[2016-06-02 05:25] LABS: Magnesium 2.2 mg/dL (1.6-2.6); Phosphorous 3.7 mg/dL (2.3-4.7)
[2016-06-02 05:29] LABS: INR 1.8; Prothrombin Time 19.7 Seconds (9.4-12.1)
[2016-06-02 05:48] LABS: Thyroid Stimulating Hormone 1.217 mcIU/mL (0.350-4.840)
[2016-06-02] MEDS: Pantoprazole 40 MG VIAL IVP SCH ×2 (07:40→17:56)
[2016-06-02] MEDS: Aspirin Enteric Coated 81 MG Tablet PO SCH (08:34)
[2016-06-02] MEDS: lamoTRIgine 25 MG TABLET PO SCH (08:35)
[2016-06-02] MEDS: Nicotine 21 MG PATCH.TD24 TD SCH (08:36)
--- NOTE | 2016-06-02 08:59 | Cardiology Progress Note ---
Date of Encounter: 06/02/16 Time of Encounter: 08:15 Assessment and Plan (1) Bradycardia Current Visit: Yes Status: Acute Patient noted to be bradycardic at rest on night of admission, heart rate 50s and 60s; Nocturnal heart rate 30s and 40s while sleeping--was then placed on dopamine gtt. Dopamine has been off >12 hours, BP and HR stable. Telemetry review: avg HR=54 SB, no significant pause. Min=48 during nocturnal hours. Continue to avoid negative chronotropes. Continue hydration with IVF. No further cardiac testing warranted at this time, Cardiology will sign-off, follow-up as outpatient. (2) Near syncope Current Visit: Yes Status: Acute Near syncopal event, which occurred after standing up from the toilet. His symptoms are very suggestive of a vasovagal event. Reports chronic abdominal issues, resulting in frequent diarrhea, and poor PO intake. Hydration has helped his sympoms and Cr improved. Echocardiogram demonstrated normal LV function. (3) Coronary artery disease Current Visit: Yes Status: Chronic [place] CAD, prior PCI. Continue aspirin and statin. Hold beta rosemarie for now given bradycardia. Preserved LVEF on echocardiogram. No new recommendations. Qualifiers: Coronary Disease-Associated Artery/Lesion type: [place] artery [place] vs. transplanted heart: [place] heart Associated angina: without angina Qualified Code(s): I25.10 - Atherosclerotic heart disease of [place] coronary artery without angina pectoris Discussion w patient/family: The assessment and plan as outlined above was discussed with the patient and/or family members who expressed understanding and agreement. All questions were answered. Thank you for involving us in the care of your patient. Please call with any questions. The patient was discussed and reviewed with Dr. Mosquera; Cardiology will sign-off , follow-up as outpatient. Subjective Principal diagnosis: Near syncope Interval history: Seen and examined. Has been off dopamine >12 hours--BP/HR stable. No complaints overnight except chronic LLQ abdominal pain. Objective Vital Signs, Last 4 Hours Pulse Pulse Pulse BP BP BP 06/02/16 07:50 56 55 55 115/46 112/52 86/48 General: Conversant HEENT: Atraumatic, Normocephaly Cardiac: Reg Rate and Rhythm, Normal S1 and S2 Lungs: Normal Breath Sounds Neuro: Alert and responsive Abdomen: Soft, Other (LLQ tenderness) Skin: No rashes noted on visualized skin Musculoskeletal: No Chest Wall Tenderness Extremities: No Edema, Normal Pulses Results 06/01/16 04:22 06/01/16 04:22 Lab Results 06/02/16 06/02/16 04:49 04:49 INR 1.8 Magnesium 2.2 TSH 1.217 Active Medications Acetaminophen (Tylenol) 650 mg PO Q6HR PRN PRN Reason: Mild Pain (1-3) Stop: 11/29/16 22:47 Al Hydrox/Mg Hydrox/Simethicone (Maalox) 15 ml PO Q6HR PRN PRN Reason: Dyspepsia Stop: 11/30/16 03:12 Last Admin: 05/31/16 12:09 Dose: 15 ml Albuterol Sulfate (Proventil Neb) 2.5 mg IH Q2H PRN PRN Reason: Shortness Of Breath/Wheezing Stop: 11/30/16 03:17 Albuterol/Ipratropium (Duoneb) 3 ml IH [id number] TOMY PRN Reason: Protocol Stop: 11/30/16 06:01 Last Admin: 06/02/16 03:44 Dose: Not Given Aspirin (Aspirin Ec) 81 mg PO DAILY [facility] Stop: 12/01/16 12:31 Last Admin: 06/02/16 08:34 Dose: 81 mg Atorvastatin Calcium (Lipitor) 20 mg PO HS [facility] Stop: 11/30/16 21:01 Last Admin: 06/01/16 19:51 Dose: 20 mg Benzonatate (Tessalon) 200 mg PO TID PRN PRN Reason: Cough Stop: 11/30/16 03:18 Buspirone HCl (Buspar) 7.5 mg PO BID [facility] Stop: 11/30/16 09:01 Last Admin: 06/02/16 08:34 Dose: 7.5 mg Docusate Sodium (Colace) 100 mg PO BID PRN PRN Reason: Constipation Stop: 11/29/16 22:47 Escitalopram Oxalate (Lexapro) 40 mg PO DAILY [facility] Stop: 11/30/16 09:01 Last Admin: 06/02/16 08:35 Dose: 40 mg Guaifenesin (Mucinex) 600 mg PO BID [facility] Stop: 11/30/16 09:01 Last Admin: 06/02/16 08:34 Dose: 600 mg Dopamine HCl/Dextrose (Dopamine Premix (400mg/250ml D5w)) 400 mg in 250 mls @ 14.719 mls/hr IVC .Q17H [facility] PRN Reason: 5 MCG/KG/MIN Stop: 11/30/16 17:31 Last Admin: 06/02/16 07:38 Dose: Not Given Sodium Chloride (0.9 % Sodium Chloride) 1,000 mls @ 100 mls/hr IV CONT [facility] Stop: 12/01/16 14:16 Last Admin: 06/01/16 15:38 Dose: 100 mls/hr Lamotrigine (Lamictal) 25 mg PO DAILY [facility] Stop: 11/30/16 09:01 Last Admin: 06/02/16 08:35 Dose: 25 mg Levothyroxine Sodium (Synthroid) 75 mcg PO 0630 [facility] Stop: 11/30/16 06:31 Last Admin: 06/02/16 07:40 Dose: 75 mcg Magnesium Hydroxide (Milk Of Magnesia Conc) 10 ml PO DAILY PRN PRN Reason: Indigestion Stop: 11/30/16 03:12 Melatonin (Melatonin) 3 mg PO HS [facility] Stop: 11/30/16 00:16 Last Admin: 06/01/16 19:51 Dose: 3 mg Mirtazapine (Remeron) 15 mg PO HS [facility] Stop: 11/30/16 00:16 Last Admin: 06/01/16 19:51 Dose: 15 mg Morphine Sulfate (Morphine Sulfate) 2 mg IVP Q4HR PRN PRN Reason: Severe Pain (7-10) Stop: 11/30/16 03:12 Naloxone HCl (Narcan) 0.4 mg IVP Q2MIN PRN PRN Reason: Opioid Reversal Stop: 11/29/16 22:47 Nicotine (Nicoderm) 21 mg TD DAILY [facility] Stop: 11/30/16 09:01 Last Admin: 06/02/16 08:36 Dose: Not Given Nitroglycerin (Nitroglycerin) 0.4 mg SL Q5MIN PRN PRN Reason: Chest Pain Stop: 11/29/16 19:28 Oxycodone HCl (Roxicodone) 5 mg PO Q4HR PRN PRN Reason: Moderate Pain (4-6) Stop: 11/30/16 04:01 Last Admin: 06/01/16 19:51 Dose: 5 mg Pantoprazole Sodium (Protonix) 40 mg IVP Q12HR [facility] Stop: 11/30/16 18:01 Last Admin: 06/02/16 07:40 Dose: 40 mg Promethazine HCl (Phenergan) 12.5 mg IVP Q6HR PRN PRN Reason: Nausea And Vomiting Stop: 11/30/16 03:12 Warfarin Sodium (Coumadin) 2.5 mg PO SUTUWETHSA [facility] Stop: 11/30/16 00:16 Last Admin: 06/01/16 03:06 Dose: 2.5 mg Warfarin Sodium (Coumadin) 5 mg PO MoFr@1800 [facility] Stop: 12/02/16 18:01 Warfarin Sodium (Coumadin Perpt) 1 each PO DAILY@1800 PRN PRN Reason: SEE COMMENTS Stop: 11/30/16 18:01 - Imaging and Cardiology Echo: report reviewed Other Results: Telemetry: avg HR=54 SB. Min=48. No signficant pause. - EKG Interpretation EKG results cardiology: personally reviewed Consult Discharge Plan - Plan Referrals: Marco Antonio Pierre DO [Primary Care Provider] -
[2016-06-02 09:53] LABS: Calcium 8.8 mg/dL (8.6-10.8); Potassium 4.6 mEq/L (3.5-4.5)
--- NOTE | 2016-06-02 14:39 | Internal Med Progress Note ---
Date of Encounter: 06/02/16 Time of Encounter: 14:36 - Assessment and plan (1) Near syncope Current Visit: Yes Status: Acute Assessment and plan: From orthostatic hypotension. Has been receiving IV fluids. Blood pressure still remains low. Random cortisol levels remain within normal limits. Creatinine at baseline. BUN 11. Appears to have been adequately rehydrated. But orthostasis remains. Will start patient on midodrine. Continue to monitor blood pressure. Moderate risk for complications (2) Bradycardia Current Visit: Yes Status: Resolved Assessment and plan: This seems to have resolved now. Patient's heart rate is much better running between high 50s and 70s. (3) Chest pain, rule out acute myocardial infarction Current Visit: Yes Status: Resolved (4) Chronic kidney disease (CKD) Current Visit: Yes Status: Chronic Assessment and plan: Renal function at baseline Qualifiers: Chronic kidney disease stage: stage 3 (moderate) Qualified Code(s): N18.3 - Chronic kidney disease, stage 3 (moderate) (5) Community acquired pneumonia Current Visit: Yes Status: Ruled-out (6) Coronary artery disease Current Visit: Yes Status: Chronic Assessment and plan: On aspirin, statin and holding antihypertensives due to low blood pressure Qualifiers: Coronary Disease-Associated Artery/Lesion type: [place] artery [place] vs. transplanted heart: [place] heart Associated angina: without angina Qualified Code(s): I25.10 - Atherosclerotic heart disease of [place] coronary artery without angina pectoris (7) History of DVT of lower extremity Current Visit: No Status: Acute Assessment and plan: On Coumadin. Subtherapeutic INR. Will bridge with Lovenox. (8) Hyperlipidemia Current Visit: Yes Status: Chronic Assessment and plan: On atorvastatin Qualifiers: Hyperlipidemia type: mixed hyperlipidemia Qualified Code(s): E78.2 - Mixed hyperlipidemia - Subjective Interval history: Patient clinically feeling better. Denies any lightheadedness or dizziness. He has been taken off the dopamine drip. Heart rate has improved. Blood pressure remains on the lower side. No shortness of breath or cough. - Constitutional Vitals: Temp Pulse Resp BP Pulse Ox 98.1 F 63 14 87/43 96 06/02/16 11:44 06/02/16 14:14 06/02/16 11:44 06/02/16 14:14 06/02/16 11:44 General appearance: Present: cooperative, mild distress, A&O X 3, pleasant, answers questions appropriately - Respiratory Respiratory exam: Present: CTAB. Absent: accessory muscle use, rales, rhonchi, wheezes - Cardiovascular Cardiovascular exam: Present: RRR, +S1, +S2. Absent: diastolic murmur, gallop, rubs, systolic murmur - GI/Abdominal GI/Abdominal exam: Present: normal bowel sounds, soft, no peritoneal signs. Absent: distended, tenderness - Extremities Exam Extremities exam: Present: warm, radial pulses palpable and symetrical. Absent : calf tenderness, cyanotic, pedal edema - Neurological Exam Neurological exam: Present: CN II-XII intact, oriented X3, no focal deficits. Absent: pronater drift, facial droop, speech deficit - Skin Skin exam: Present: dry, intact Internal Medicine: Result - Labs CBC & Chem 7: 06/01/16 04:22 06/02/16 09:31 Labs: BMP 06/02/16 09:31 Sodium 141 Potassium 4.6 H Chloride 112 H Carbon Dioxide 21 BUN 11 Creatinine 1.55 H Glucose 133 H Calcium 8.8 - ABG Interpretation ABG results: PT/INR, D-dimer PT 19.7 Seconds (9.4-12.1) H 06/02/16 04:49 Consult Discharge Plan - Plan Referrals: Marco Antonio Pierre DO [Primary Care Provider] - Jayden Bui DO [Partnered Physician] - 06/12/16 9:05 am (in [place] office) - Attending Attestation This document has been at least partially created by [employer] recognition technology by Dr. Nice. Errors in grammar, wording or other phrases may exist. If errors are found after the documentation is signed, they will be addressed individually in the addendum section of this document when appropriate.
[2016-06-02] MEDS ORDERED: Levalbuterol Neb 1.25 MG/3 ML IH PRN (17:16)
[2016-06-02] MEDS: *HR* Enoxaparin 80 MG/0.8 ML SYRINGE SQ SCH (17:56)
[2016-06-02] MEDS ORDERED: *HR* Warfarin 5 MG TABLET PO SCH (18:00)
[2016-06-02] MEDS: Mirtazapine 15 MG TABLET PO SCH (21:11)
[2016-06-02] MEDS: Melatonin 3 MG TABLET PO SCH (21:11)
[2016-06-02] MEDS: *HR* OxyCODONE Immed Rel 5 MG TABLET PO PRN (21:11)
[2016-06-03 04:51] LABS: INR 1.8; Prothrombin Time 20.1 Seconds (9.4-12.1)
[2016-06-03] MEDS: *HR* Enoxaparin 80 MG/0.8 ML SYRINGE SQ SCH (05:15)
[2016-06-03] MEDS: *HR* Warfarin 2.5 MG TABLET PO SCH (05:15)
[2016-06-03] MEDS: Pantoprazole 40 MG VIAL IVP SCH (05:15)
[2016-06-03] MEDS: Aspirin Enteric Coated 81 MG Tablet PO SCH (07:40)
[2016-06-03] MEDS: lamoTRIgine 25 MG TABLET PO SCH (07:40)
[2016-06-03] MEDS: Nicotine 21 MG PATCH.TD24 TD SCH (07:40)
[2016-06-03 08:07] VITALS: BP 141/63
[2016-06-03 10:32] LABS: Calcium 9.3 mg/dL (8.6-10.8)
[2016-06-03 10:37] LABS: Basophils # 0.1 K/mcL (0.0-0.2); Basophils % 0.7 %; Eosinophils # 0.3 K/mcL (0.0-0.6); Eosinophils % 4.4 %; Hemoglobin 12.5 g/dL (12.9-16.9); Immature Granulocytes % 0.4 % (0-4); Lymphocytes # 2.1 K/mcL (0.6-4.6); Lymphocytes % 27.5 %; Mean Corpuscular HGB Conc 32.1 g/dL (31.6-35.5); Mean Corpuscular Hemoglobin 29.8 pg (28.0-33.3); Mean Corpuscular Volume 93.1 fL (83.0-100.0); Mean Platelet Volume 9.5 fL (9.4-12.4); Monocytes # 0.5 K/mcL (0.0-1.3); Monocytes % 7.2 %; Neutrophils # 4.5 K/mcL (1.6-8.9); Platelet Count 162 K/mcL (140-400); Red Blood Count 4.19 M/mcL (4.19-5.50); Red Cell Distribution Width 14.6 % (11.5-14.5); Segmented Neutrophils % 59.8 %
--- NOTE | 2016-06-03 11:45 | Discharge Summary ---
Date of Encounter: 06/03/16 Time of Encounter: 11:27 - Discharge Diagnosis (1) Bradycardia Priority: Primary Status: Resolved (2) Near syncope Priority: Primary Status: Acute (3) Orthostatic hypotension Priority: Primary Status: Acute (4) Coronary artery disease Priority: Secondary Status: Chronic Qualifiers: Coronary Disease-Associated Artery/Lesion type: [place] artery [place] vs. transplanted heart: [place] heart Associated angina: without angina Qualified Code(s): I25.10 - Atherosclerotic heart disease of [place] coronary artery without angina pectoris - Discharge Medications Prescriptions: Acetaminophen [Tylenol] 650 mg PO Q6HR PRN #90 tablet PRN Reason: Mild Pain (1-3) Aspirin Enteric Coated [Aspirin EC] 81 mg PO DAILY #90 tablet. Docusate [Colace] 100 mg PO BID PRN #100 capsule PRN Reason: Constipation Midodrine [ProAmatine] 5 mg PO 0800,1200,1700 #90 tablet Home Medications: Atorvastatin [Lipitor] 20 mg PO DAILY 04/10/15 [History] Escitalopram [Lexapro] 40 mg PO DAILY 04/10/15 [History] Furosemide [Lasix] 20 mg PO DAILY 04/10/15 [History] Levothyroxine [Synthroid] 75 mcg PO DAILY 04/10/15 [History] Mirtazapine [Remeron] 15 mg PO HS 04/10/15 [History] Warfarin [Coumadin] 5 mg PO MOFR 04/10/15 [History] Lamotrigine [Lamictal] 25 mg PO DAILY 08/03/15 [History] Buspirone HCl [Buspar] 7.5 mg PO BID 05/30/16 [History] Cyanocobalamin (Vitamin B-12) [Vitamin B12] 1,000 mcg PO DAILY 05/30/16 [History ] Melatonin/Pyridoxine HCl (B6) [Melatonin 3 mg Tablet] 3 mg PO HS 05/30/16 [ History] Omeprazole [PriLOSEC] 20 mg PO DAILY 05/30/16 [History] Polyethylene Glycol 3350 [MiraLAX] 17 gm PO DAILY 05/30/16 [History] Warfarin [Coumadin] 2.5 mg PO SUTUWETHSA 05/30/16 [History] Acetaminophen [Tylenol] 650 mg PO Q6HR PRN #90 tablet 06/03/16 [Rx] Aspirin Enteric Coated [Aspirin EC] 81 mg PO DAILY #90 tablet. 06/03/16 [Rx] Docusate [Colace] 100 mg PO BID PRN #100 capsule 06/03/16 [Rx] Midodrine [ProAmatine] 5 mg PO 0800,1200,1700 #90 tablet 06/03/16 [Rx] Allergies/Adverse Reactions: Allergies Iodinated Contrast Media - Oral and [Iodinated Contrast Media - IV Dye] Allergy (Verified 05/30/16 17:48) Anaphylaxis diazepam [From Valium] Adverse Reaction (Verified 05/30/16 22:02) Confusion lisinopril Adverse Reaction (Verified 05/30/16 22:02) Cough Procedures/tests Complete & Pending: Procedures Performed prior 72 hours Category Date Time Status CT pelvis wo no iv no oral [CT] Routine Cat Scan 06/02/16 15:11 Completed Date of admission: 05/31/16 13:52 Primary care physician: Marco Antonio Pierre DO Consults: 06/02/16 07:00 Consult to Invasive Line Access Team [CONS] Routine Reason for Consult: Limited vascular access Line Type: PICC PICC line indications: Highly caustic fluid/med Time Notified: 01:11 Call Completed: No - Patient Status Disposition: Home, Self-Care Condition: Good Overall status at discharge: patient is back to baseline - Discharge Instructions Follow Up With: Marco Antonio Pierre DO [Primary Care Provider] - 07/31/16 1:00 pm (OFFICE COULD NOT SCHEDULE APPT ANY SOONER) Jayden Bui DO [Partnered Physician] - 06/12/16 9:05 am (in [place] office) - Diet and Activity Activity: increase activity as tolerated Diet: advance to your usual diet Hospital course: Mr. Jaffe is a 76 year old male who presented to the hospital with complaints of chest pain and palpitations while having a bowel movement. He also reported feeling Dizzy after getting up from a sitting position. Patient was found to have orthostatic hypotension and treated with fluids with minimal improvement and subsequently started on Midodrine. Pt was also seen by cardiology, troponin ruled out ischemic cardiac causes and an echocardiogram showed preserved ejection fraction. Cardiology recommended continuation of aspirin and Statin. BP and Heart rate remained stable. A CT of the abdomen was obtained due to the left side abdominal pain. Results showed a small abdominal hernia containing some fat. Patient is recommended to continue analgesics PRN and follow out- patient with his PCP . Patient symptoms were improved and discharged home in stable condition. - Time Spent with Patient Total time spent providing and/or coordinating discharge services: - Constitutional Vitals: Temp Pulse Resp BP Pulse Ox 97.9 F 53 16 141/63 98 06/03/16 07:33 06/03/16 08:06 06/03/16 07:33 06/03/16 08:06 06/03/16 07:33 General appearance: Present: cooperative, mild distress, A&O X 3, pleasant, answers questions appropriately - Head Head exam: Present: atraumatic, normocephalic - Eye Eye exam: Present: PERRL, conjuntiva pink, sclera anicteric Pupils: Present: PERRL - Neck Neck exam general surgery: Present: supple, trachea midline. Absent: lymphadenopathy - Respiratory Respiratory exam: Present: CTAB. Absent: accessory muscle use, rales, rhonchi, wheezes - Cardiovascular Cardiovascular exam: Present: RRR, +S1, +S2. Absent: diastolic murmur, gallop, rubs, systolic murmur - GI/Abdominal GI/Abdominal exam: Present: normal bowel sounds, soft, no peritoneal signs. Absent: distended, tenderness - Extremities Exam Extremities exam: Present: warm, radial pulses palpable and symetrical. Absent : calf tenderness, cyanotic, pedal edema - Neurological Exam Neurological exam: Present: CN II-XII intact, oriented X3, no focal deficits. Absent: pronater drift, facial droop, speech deficit - Skin Skin exam: Present: dry, intact
== END 2016-06-03 12:55 | disposition home or self-care (01) | DRG 309 ==
LOC: EMEROO 17:46 → 3BNU 17:46 → SUATTDRO 21:40 → 3BNU 21:52 → 2NNU 05-31 05:22 → SUATTDRO 05-31 13:52
PROVIDERS: ADMIT Internal Medicine; ATTEND Family Medicine

== ENCOUNTER 2021-03-31 08:21 | Inpatient (IN) ==
[2021-03-31] MEDS ORDERED: Ondansetron 4 MG/2 ML VIAL IVP PRN (11:30)
[2021-03-31] MEDS: *HR* Heparin 5,000 UNIT/ML VIAL SQ SCH ×2 (14:24→20:43)
[2021-03-31] MEDS: Ipratropium 1 PUFF INHALER IH SCH ×2 (15:29→16:38)
[2021-03-31] MEDS ORDERED: *HR* Dextrose 50 % in Water (Syg) 50 ML SYRINGE IVP PRN (15:48)
[2021-03-31] MEDS ORDERED: D5% in Water 1,000 ML IVC PRN (15:48)
[2021-03-31] MEDS ORDERED: Dextrose Gel 15 GM/37.5 ML TUBE PO PRN ×2 (15:48)
[2021-03-31] MEDS ORDERED: Ipratropium 1 PUFF INHALER IH PRN (16:41)
[2021-03-31] MEDS ORDERED: Vancomycin 1 EACH in 0.9 % Sodium Chloride 250 ML IVPB PRN (17:00)
[2021-03-31] MEDS: Cefepime HCl 2,000 MG in Water for inj. (sterile) 20 ML IVP SCH (17:25)
[2021-03-31] MEDS: Insulin LISPRO 300 UNITS/3 ML VIAL SUBQ SCH ×2 (17:26→20:05)
[2021-03-31] MEDS: Aspirin 81 MG TAB.CHEW PO SCH (18:05)
[2021-03-31] MEDS ORDERED: 0.9 % Sodium Chloride 1,000 ML ONE (20:01)
[2021-03-31 20:34] LABS: ABG Base Excess -1 mEq/L (-2 to 3); ABG HCO3 24 mEq/L (21-27); ABG Oxygen Saturation 92 % (95-98); ABG PCO2 38 mmHg (35-45); ABG PO2 62 mmHg (85-104); ABG TCO2 25 mEq/L (20-26)
[2021-04-01 03:17] LABS: Hemoglobin 13.6 g/dL (12.9-16.9)
[2021-04-01 03:19] LABS: Hematocrit 42.6 % (37.5-50.1); Immature Platelets 6.2 % (1.1-6.1); Mean Corpuscular HGB Conc 31.9 g/dL (31.6-35.5); Mean Corpuscular Hemoglobin 29.8 pg (28.0-33.3); Mean Corpuscular Volume 93.2 fL (83.0-100.0); Mean Platelet Volume 10.9 fL (9.4-12.4); Red Blood Count 4.57 M/mcL (4.19-5.50); Red Cell Distribution Width 13.6 % (11.5-14.5); White Blood Count 12.2 K/mcL (4.3-11.1)
[2021-04-01 03:31] LABS: Potassium 4.6 mEq/L (3.5-5.1)
[2021-04-01] MEDS: *HR* Heparin 5,000 UNIT/ML VIAL SQ SCH ×3 (05:33→20:47)
[2021-04-01] MEDS ORDERED: cefTRIAXone 2,000 MG in Water for inj. (sterile) 20 ML IVP SCH (08:00)
[2021-04-01] MEDS: Insulin LISPRO 300 UNITS/3 ML VIAL SUBQ SCH ×4 (08:58→20:46)
[2021-04-01] MEDS: Aspirin 81 MG TAB.CHEW PO SCH (09:15)
[2021-04-01] MEDS ORDERED: D5% in Water 500 ML IVC SCH (11:45)
[2021-04-01] MEDS: Azithromycin 500 MG in 0.9 % Sodium Chloride 250 ML IVPB SCH ×2 (15:47→17:54)
[2021-04-01] MEDS: Cefepime HCl 2,000 MG in Water for inj. (sterile) 20 ML IVP SCH (15:48)
[2021-04-01] MEDS: Budesonide/Formoterol 80/4.5 1 PUFF INH IH SCH ×2 (17:18→19:47)
[2021-04-01] MEDS: Acetaminophen 325 MG TABLET PO PRN (18:44)
[2021-04-01] MEDS: Mirtazapine 15 MG TABLET PO SCH (20:46)
[2021-04-01] MEDS: Sennosides/Docusate Sodium TABLET PO SCH (20:46)
[2021-04-01] MEDS: Melatonin 3 MG TABLET PO SCH (20:46)
[2021-04-01] MEDS: Psyllium 1 PACKET POWD.PACK PO SCH (20:47)
[2021-04-02] MEDS: *HR* Heparin 5,000 UNIT/ML VIAL SQ SCH ×3 (05:31→20:44)
[2021-04-02 06:02] LABS: Hematocrit 39.5 % (37.5-50.1); Hemoglobin 12.4 g/dL (12.9-16.9); Immature Platelets 7.1 % (1.1-6.1); Lymphocytes # 0.8 K/mcL (0.6-4.6); Mean Corpuscular HGB Conc 31.4 g/dL (31.6-35.5); Mean Corpuscular Hemoglobin 29.1 pg (28.0-33.3); Mean Corpuscular Volume 92.7 fL (83.0-100.0); Mean Platelet Volume 11.4 fL (9.4-12.4); Platelet Count 105 K/mcL (140-400); Red Blood Count 4.26 M/mcL (4.19-5.50); Red Cell Distribution Width 13.9 % (11.5-14.5); White Blood Count 12.6 K/mcL (4.3-11.1)
[2021-04-02 06:27] LABS: Alanine Aminotransferase 30 Units/L (7-52); Albumin 3.1 g/dL (3.5-5.7); Albumin/Globulin Ratio 0.9 (1.1-2.2); Alkaline Phosphatase 51 Units/L (34-104); Aspartate Amino Transferase 61 Units/L (13-39); BUN/Creatinine Ratio 22 (6-26); Bilirubin,Total 0.5 mg/dL (0.3-1.0); Blood Urea Nitrogen 80 mg/dL (8-23); Calcium 8.5 mg/dL (8.6-10.3); Carbon Dioxide 21 mEq/L (23-29); Chloride 107 mEq/L (98-107); Globulin 3.4 g/dL (2.4-3.5); Glucose 153 mg/dL (70-105); Lactate Dehydrogenase 287 Units/L (140-271); Osmolality,Calculated 319 (280-300); Potassium 4.3 mEq/L (3.5-5.1); Sodium 141 mEq/L (136-145); Total Protein 6.5 g/dL (6.4-8.9); eGFR For African Americans 20 (> 60); eGFR For Non-African Americans 17 (> 60)
[2021-04-02 07:16] LABS: Neutrophils # 11.6 K/mcL (1.6-8.9); Platelet Estimate Slight Decrease (Normal)
[2021-04-02] MEDS ORDERED: 0.9 % Sodium Chloride 1,000 ML IVC SCH (07:45)
[2021-04-02] MEDS: Budesonide/Formoterol 80/4.5 1 PUFF INH IH SCH ×2 (08:20→20:00)
[2021-04-02 08:24] LABS: Ferritin > 1500 ng/mL (20-250)
[2021-04-02 08:31] LABS: C-Reactive Protein 217 mg/L (Less than 10)
[2021-04-02] MEDS: Insulin LISPRO 300 UNITS/3 ML VIAL SUBQ SCH ×4 (09:25→20:45)
[2021-04-02] MEDS: Cyanocobalamin (B-12) 1,000 MCG TABLET PO SCH (09:26)
[2021-04-02] MEDS: lamoTRIgine 25 MG TABLET PO SCH (09:26)
[2021-04-02] MEDS: Sennosides/Docusate Sodium TABLET PO SCH ×2 (09:26→20:46)
[2021-04-02] MEDS: Loratadine 10 MG TABLET PO SCH (09:26)
[2021-04-02] MEDS: Aspirin 81 MG TAB.CHEW PO SCH (09:26)
[2021-04-02] MEDS: Psyllium 1 PACKET POWD.PACK PO SCH ×2 (09:27→20:47)
[2021-04-02] MEDS: Cefepime HCl 2,000 MG in Water for inj. (sterile) 20 ML IVP SCH (15:31)
[2021-04-02] MEDS: Azithromycin 500 MG in 0.9 % Sodium Chloride 250 ML IVPB SCH (15:32)
[2021-04-02] MEDS: Acetaminophen 325 MG TABLET PO PRN (15:52)
[2021-04-02] MEDS: Melatonin 3 MG TABLET PO SCH (20:46)
[2021-04-02] MEDS: Mirtazapine 15 MG TABLET PO SCH (20:46)
[2021-04-03 05:39] LABS: Hematocrit 39.2 % (37.5-50.1); Hemoglobin 12.4 g/dL (12.9-16.9); Immature Granulocytes % 0.5 % (0-4); Immature Platelets 6.9 % (1.1-6.1); Lymphocytes # 0.7 K/mcL (0.6-4.6); Lymphocytes % 7.8 %; Mean Corpuscular HGB Conc 31.6 g/dL (31.6-35.5); Mean Corpuscular Hemoglobin 29.4 pg (28.0-33.3); Mean Corpuscular Volume 92.9 fL (83.0-100.0); Mean Platelet Volume 11.1 fL (9.4-12.4); Monocytes # 0.4 K/mcL (0.0-1.3); Monocytes % 4.3 %; Neutrophils # 8.2 K/mcL (1.6-8.9); Platelet Count 102 K/mcL (140-400); Red Blood Count 4.22 M/mcL (4.19-5.50); Segmented Neutrophils % 87.4 %; White Blood Count 9.4 K/mcL (4.3-11.1)
[2021-04-03] MEDS: *HR* Heparin 5,000 UNIT/ML VIAL SQ SCH ×3 (05:51→20:52)
[2021-04-03 06:35] LABS: Alanine Aminotransferase 28 Units/L (7-52); Albumin 2.9 g/dL (3.5-5.7); Albumin/Globulin Ratio 0.9 (1.1-2.2); Alkaline Phosphatase 50 Units/L (34-104); Aspartate Amino Transferase 41 Units/L (13-39); BUN/Creatinine Ratio 27 (6-26); Bilirubin,Total 0.4 mg/dL (0.3-1.0); Blood Urea Nitrogen 75 mg/dL (8-23); C-Reactive Protein 85 mg/L (Less than 10); Calcium 8.7 mg/dL (8.6-10.3); Carbon Dioxide 24 mEq/L (23-29); Chloride 109 mEq/L (98-107); Ferritin > 1500 ng/mL (20-250); Globulin 3.1 g/dL (2.4-3.5); Glucose 152 mg/dL (70-105); Lactate Dehydrogenase 359 Units/L (140-271); Osmolality,Calculated 319 (280-300); Potassium 4.6 mEq/L (3.5-5.1); Sodium 142 mEq/L (136-145); eGFR For African Americans 26 (> 60); eGFR For Non-African Americans 22 (> 60)
[2021-04-03] MEDS: Budesonide/Formoterol 80/4.5 1 PUFF INH IH SCH ×2 (07:39→20:22)
[2021-04-03] MEDS: Psyllium 1 PACKET POWD.PACK PO SCH ×2 (08:49→20:53)
[2021-04-03] MEDS: Sennosides/Docusate Sodium TABLET PO SCH ×2 (08:50→20:54)
[2021-04-03] MEDS: Aspirin 81 MG TAB.CHEW PO SCH (08:50)
[2021-04-03] MEDS: Cyanocobalamin (B-12) 1,000 MCG TABLET PO SCH (08:50)
[2021-04-03] MEDS: lamoTRIgine 25 MG TABLET PO SCH (08:50)
[2021-04-03] MEDS: Loratadine 10 MG TABLET PO SCH (08:51)
[2021-04-03] MEDS: Insulin LISPRO 300 UNITS/3 ML VIAL SUBQ SCH ×4 (08:59→20:51)
[2021-04-03] MEDS ORDERED: 0.9 % Sodium Chloride 1,000 ML IVC SCH (11:45)
[2021-04-03 12:59] LABS: VBG HCO3 22 mEq/L (21-27); VBG PCO2 37 mmHg (41-51); VBG PH 7.38 pH Units (7.32-7.42); VBG PO2 43 mmHg (25-50)
[2021-04-03] MEDS ORDERED: Piperacillin/Tazobactam 3.375 GM in 0.9 % Sodium Chloride Mini Bag 100 ML IVPB SCH (16:00)
[2021-04-03] MEDS: Azithromycin 500 MG in 0.9 % Sodium Chloride 250 ML IVPB SCH (16:07)
[2021-04-03] MEDS: Piperacillin/Tazobactam 3.375 GM in 0.9 % Sodium Chloride Mini Bag 100 ML IVPB SCH (16:07)
[2021-04-03] MEDS: Melatonin 3 MG TABLET PO SCH (20:53)
[2021-04-03] MEDS: Mirtazapine 15 MG TABLET PO SCH (20:54)
[2021-04-04] MEDS: Piperacillin/Tazobactam 3.375 GM in 0.9 % Sodium Chloride Mini Bag 100 ML IVPB SCH ×2 (03:08→15:42)
[2021-04-04] MEDS: *HR* Heparin 5,000 UNIT/ML VIAL SQ SCH ×3 (05:51→22:18)
[2021-04-04 07:40] LABS: Hematocrit 37.9 % (37.5-50.1); Hemoglobin 11.8 g/dL (12.9-16.9); Mean Corpuscular HGB Conc 31.1 g/dL (31.6-35.5); Mean Corpuscular Hemoglobin 28.8 pg (28.0-33.3); Mean Corpuscular Volume 92.4 fL (83.0-100.0); Mean Platelet Volume 10.7 fL (9.4-12.4); Platelet Count 119 K/mcL (140-400); Red Cell Distribution Width 14.1 % (11.5-14.5); White Blood Count 6.9 K/mcL (4.3-11.1)
[2021-04-04 07:56] LABS: Calcium 8.6 mg/dL (8.6-10.3); Potassium 4.3 mEq/L (3.5-5.1)
[2021-04-04] MEDS: Budesonide/Formoterol 80/4.5 1 PUFF INH IH SCH ×2 (07:57→20:02)
[2021-04-04] MEDS: Insulin LISPRO 300 UNITS/3 ML VIAL SUBQ SCH ×4 (08:24→22:13)
[2021-04-04] MEDS: Loratadine 10 MG TABLET PO SCH (08:25)
[2021-04-04] MEDS: Psyllium 1 PACKET POWD.PACK PO SCH ×2 (08:25→22:12)
[2021-04-04] MEDS: Aspirin 81 MG TAB.CHEW PO SCH (08:25)
[2021-04-04] MEDS: lamoTRIgine 25 MG TABLET PO SCH (08:25)
[2021-04-04] MEDS: Sennosides/Docusate Sodium TABLET PO SCH ×2 (08:25→22:12)
[2021-04-04] MEDS: Cyanocobalamin (B-12) 1,000 MCG TABLET PO SCH (08:26)
[2021-04-04] MEDS: Mirtazapine 15 MG TABLET PO SCH (22:12)
[2021-04-04] MEDS: Melatonin 3 MG TABLET PO SCH (22:12)
[2021-04-05] MEDS: Piperacillin/Tazobactam 3.375 GM in 0.9 % Sodium Chloride Mini Bag 100 ML IVPB SCH ×3 (02:31→21:16)
[2021-04-05] MEDS: *HR* Heparin 5,000 UNIT/ML VIAL SQ SCH ×3 (05:50→21:18)
[2021-04-05 06:14] LABS: Basophils % 0.2 %; Hematocrit 41.2 % (37.5-50.1); Hemoglobin 12.7 g/dL (12.9-16.9); Immature Granulocytes % 1.9 % (0-4); Lymphocytes % 17.9 %; Mean Corpuscular HGB Conc 30.8 g/dL (31.6-35.5); Mean Corpuscular Volume 94.1 fL (83.0-100.0); Mean Platelet Volume 10.6 fL (9.4-12.4); Monocytes # 0.6 K/mcL (0.0-1.3); Monocytes % 10.7 %; Neutrophils # 3.7 K/mcL (1.6-8.9); Platelet Count 151 K/mcL (140-400); Red Blood Count 4.38 M/mcL (4.19-5.50); Red Cell Distribution Width 14.1 % (11.5-14.5); Segmented Neutrophils % 69.3 %; White Blood Count 5.4 K/mcL (4.3-11.1)
[2021-04-05 06:27] LABS: Potassium 4.1 mEq/L (3.5-5.1)
[2021-04-05 06:34] LABS: Platelet Estimate Normal (Normal); Reactive Lymphocytes Present (Not Present)
[2021-04-05] MEDS: Psyllium 1 PACKET POWD.PACK PO SCH ×2 (07:27→21:14)
[2021-04-05] MEDS: Loratadine 10 MG TABLET PO SCH (07:27)
[2021-04-05] MEDS: Cyanocobalamin (B-12) 1,000 MCG TABLET PO SCH (07:27)
[2021-04-05] MEDS: Insulin LISPRO 300 UNITS/3 ML VIAL SUBQ SCH ×5 (07:27→21:24)
[2021-04-05] MEDS: Sennosides/Docusate Sodium TABLET PO SCH ×2 (07:27→21:15)
[2021-04-05] MEDS: lamoTRIgine 25 MG TABLET PO SCH (07:27)
[2021-04-05] MEDS: Aspirin 81 MG TAB.CHEW PO SCH (07:27)
[2021-04-05] MEDS: Budesonide/Formoterol 80/4.5 1 PUFF INH IH SCH ×2 (09:02→20:41)
[2021-04-05] MEDS: D5% in Water 1,000 ML IVC SCH (12:03)
[2021-04-05] MEDS ORDERED: Piperacillin/Tazobactam 3.375 GM in 0.9 % Sodium Chloride Mini Bag 100 ML IVPB SCH (14:00)
[2021-04-05] MEDS: Melatonin 3 MG TABLET PO SCH (21:14)
[2021-04-05] MEDS: Mirtazapine 15 MG TABLET PO SCH (21:15)
[2021-04-06] MEDS: Piperacillin/Tazobactam 3.375 GM in 0.9 % Sodium Chloride Mini Bag 100 ML IVPB SCH ×3 (05:39→21:20)
[2021-04-06] MEDS: D5% in Water 1,000 ML IVC SCH ×3 (05:39→15:51)
[2021-04-06] MEDS: *HR* Heparin 5,000 UNIT/ML VIAL SQ SCH ×3 (05:40→21:21)
[2021-04-06 05:43] LABS: Basophils % 0.3 %; Eosinophils % 0.3 %; Hematocrit 38.9 % (37.5-50.1); Hemoglobin 12.3 g/dL (12.9-16.9); Immature Granulocytes % 3.1 % (0-4); Lymphocytes % 17.1 %; Mean Corpuscular HGB Conc 31.6 g/dL (31.6-35.5); Mean Corpuscular Hemoglobin 29.4 pg (28.0-33.3); Mean Corpuscular Volume 92.8 fL (83.0-100.0); Mean Platelet Volume 10.7 fL (9.4-12.4); Monocytes # 0.4 K/mcL (0.0-1.3); Monocytes % 7.3 %; Neutrophils # 4.2 K/mcL (1.6-8.9); Platelet Count 171 K/mcL (140-400); Red Blood Count 4.19 M/mcL (4.19-5.50); Red Cell Distribution Width 14.2 % (11.5-14.5); Segmented Neutrophils % 71.9 %; White Blood Count 5.8 K/mcL (4.3-11.1)
[2021-04-06 06:01] LABS: Albumin 2.8 g/dL (3.5-5.7); Bilirubin,Total 0.5 mg/dL (0.3-1.0); Calcium 8.5 mg/dL (8.6-10.3); Globulin 2.9 g/dL (2.4-3.5); Potassium 3.6 mEq/L (3.5-5.1); Total Protein 5.7 g/dL (6.4-8.9)
[2021-04-06] MEDS: Budesonide/Formoterol 80/4.5 1 PUFF INH IH SCH ×2 (08:24→19:56)
[2021-04-06] MEDS: Insulin LISPRO 300 UNITS/3 ML VIAL SUBQ SCH ×4 (09:14→20:29)
[2021-04-06] MEDS: Aspirin 81 MG TAB.CHEW PO SCH (09:26)
[2021-04-06] MEDS: lamoTRIgine 25 MG TABLET PO SCH (10:39)
[2021-04-06] MEDS: Sennosides/Docusate Sodium TABLET PO SCH ×2 (10:39→20:28)
[2021-04-06] MEDS: Psyllium 1 PACKET POWD.PACK PO SCH ×2 (10:39→20:28)
[2021-04-06] MEDS: Loratadine 10 MG TABLET PO SCH (10:39)
[2021-04-06] MEDS: Cyanocobalamin (B-12) 1,000 MCG TABLET PO SCH (10:39)
[2021-04-06] MEDS: Mirtazapine 15 MG TABLET PO SCH (20:28)
[2021-04-06] MEDS: Melatonin 3 MG TABLET PO SCH (20:28)
[2021-04-07] MEDS: D5% in Water 1,000 ML IVC SCH ×3 (01:43→21:02)
[2021-04-07 05:39] LABS: Hematocrit 39.8 % (37.5-50.1); Hemoglobin 12.8 g/dL (12.9-16.9); Mean Corpuscular HGB Conc 32.2 g/dL (31.6-35.5); Mean Corpuscular Hemoglobin 29.6 pg (28.0-33.3); Mean Corpuscular Volume 91.9 fL (83.0-100.0); Mean Platelet Volume 10.8 fL (9.4-12.4); Platelet Count 182 K/mcL (140-400); Red Blood Count 4.33 M/mcL (4.19-5.50); Red Cell Distribution Width 13.6 % (11.5-14.5); White Blood Count 9.4 K/mcL (4.3-11.1)
[2021-04-07] MEDS: *HR* Heparin 5,000 UNIT/ML VIAL SQ SCH ×3 (05:42→21:02)
[2021-04-07] MEDS: Piperacillin/Tazobactam 3.375 GM in 0.9 % Sodium Chloride Mini Bag 100 ML IVPB SCH ×3 (05:42→21:03)
[2021-04-07 06:06] LABS: Calcium 8.2 mg/dL (8.6-10.3); Potassium 3.7 mEq/L (3.5-5.1)
[2021-04-07] MEDS: Budesonide/Formoterol 80/4.5 1 PUFF INH IH SCH ×2 (08:18→20:12)
[2021-04-07] MEDS: Insulin LISPRO 300 UNITS/3 ML VIAL SUBQ SCH ×4 (09:21→21:03)
[2021-04-07] MEDS: lamoTRIgine 25 MG TABLET PO SCH (09:23)
[2021-04-07] MEDS: Loratadine 10 MG TABLET PO SCH (09:23)
[2021-04-07] MEDS: Aspirin 81 MG TAB.CHEW PO SCH (09:23)
[2021-04-07] MEDS: Psyllium 1 PACKET POWD.PACK PO SCH ×2 (09:23→21:03)
[2021-04-07] MEDS: Sennosides/Docusate Sodium TABLET PO SCH ×2 (09:23→21:03)
[2021-04-07] MEDS: Cyanocobalamin (B-12) 1,000 MCG TABLET PO SCH (09:23)
[2021-04-07] MEDS ORDERED: Morphine Sulfate 2 MG/ML SYRINGE IVP PRN (16:55)
[2021-04-07] MEDS: Melatonin 3 MG TABLET PO SCH (21:03)
[2021-04-07] MEDS: Mirtazapine 15 MG TABLET PO SCH (21:03)
[2021-04-08 02:58] LABS: Hematocrit 37.4 % (37.5-50.1); Hemoglobin 12.3 g/dL (12.9-16.9); Mean Corpuscular HGB Conc 32.9 g/dL (31.6-35.5); Mean Corpuscular Hemoglobin 29.7 pg (28.0-33.3); Mean Corpuscular Volume 90.3 fL (83.0-100.0); Mean Platelet Volume 11.4 fL (9.4-12.4); Platelet Count 162 K/mcL (140-400); Red Blood Count 4.14 M/mcL (4.19-5.50); Red Cell Distribution Width 13.4 % (11.5-14.5); White Blood Count 11.3 K/mcL (4.3-11.1)
[2021-04-08 03:18] LABS: Calcium 8.1 mg/dL (8.6-10.3); Potassium 3.5 mEq/L (3.5-5.1)
[2021-04-08] MEDS: Piperacillin/Tazobactam 3.375 GM in 0.9 % Sodium Chloride Mini Bag 100 ML IVPB SCH ×2 (05:00→16:14)
[2021-04-08] MEDS: *HR* Heparin 5,000 UNIT/ML VIAL SQ SCH ×2 (05:01→16:16)
[2021-04-08] MEDS: Budesonide/Formoterol 80/4.5 1 PUFF INH IH SCH ×2 (07:56→08:01)
[2021-04-08] MEDS: D5% in Water 1,000 ML IVC SCH (10:05)
[2021-04-08] MEDS: Insulin LISPRO 300 UNITS/3 ML VIAL SUBQ SCH ×3 (10:08→16:44)
[2021-04-08] MEDS: Sennosides/Docusate Sodium TABLET PO SCH (10:24)
[2021-04-08] MEDS: Psyllium 1 PACKET POWD.PACK PO SCH (10:24)
[2021-04-08] MEDS: Aspirin 81 MG TAB.CHEW PO SCH (10:24)
[2021-04-08] MEDS: Loratadine 10 MG TABLET PO SCH (10:24)
[2021-04-08] MEDS: lamoTRIgine 25 MG TABLET PO SCH (10:24)
[2021-04-08] MEDS: Cyanocobalamin (B-12) 1,000 MCG TABLET PO SCH (10:24)
[2021-04-08] MEDS ORDERED: Haloperidol Lactate 5 MG/ML VIAL IVP PRN (20:19)
[2021-04-08] MEDS ORDERED: *HR* LORazepam Oral Conc 2 MG/ML PO PRN (20:19)
[2021-04-09] MEDS: Melatonin 3 MG TABLET PO SCH ×2 (00:02→19:46)
[2021-04-09] MEDS: Mirtazapine 15 MG TABLET PO SCH ×2 (00:02→19:47)
[2021-04-09] MEDS ORDERED: Pantoprazole 40 MG VIAL IVP SCH (09:00)
[2021-04-09] MEDS: Loratadine 10 MG TABLET PO SCH (09:14)
[2021-04-09] MEDS: Morphine Sulfate Oral CONC 10 MG/0.5 ML ORAL.SYG SL PRN ×2 (12:17→18:55)
[2021-04-09] MEDS: Morphine Sulfate 2 MG/ML SYRINGE IVP PRN ×2 (15:33→21:13)
[2021-04-10] MEDS: Morphine Sulfate 2 MG/ML SYRINGE IVP PRN ×3 (00:28→19:56)
[2021-04-10] MEDS: Loratadine 10 MG TABLET PO SCH (09:53)
[2021-04-10] MEDS: *HR* LORazepam Oral Conc 2 MG/ML PO PRN (11:01)
[2021-04-10] MEDS: Melatonin 3 MG TABLET PO SCH (19:26)
[2021-04-10] MEDS: Mirtazapine 15 MG TABLET PO SCH (19:26)
[2021-04-11] MEDS: Loratadine 10 MG TABLET PO SCH (09:47)
[2021-04-11] MEDS: Morphine Sulfate Oral CONC 10 MG/0.5 ML ORAL.SYG SL PRN ×2 (09:50→22:38)
[2021-04-11] MEDS: *HR* LORazepam Oral Conc 2 MG/ML PO PRN ×2 (11:47→22:38)
[2021-04-11] MEDS: Morphine Sulfate 2 MG/ML SYRINGE IVP PRN (15:19)
[2021-04-12] MEDS: Morphine Sulfate Oral CONC 10 MG/0.5 ML ORAL.SYG SL PRN ×4 (04:26→18:20)
[2021-04-12] MEDS: Mirtazapine 15 MG TABLET PO SCH (04:36)
[2021-04-12] MEDS: Melatonin 3 MG TABLET PO SCH (04:36)
[2021-04-12] MEDS: *HR* LORazepam Oral Conc 2 MG/ML PO PRN ×4 (06:38→20:52)
[2021-04-12] MEDS: Loratadine 10 MG TABLET PO SCH (10:40)
[2021-04-13] MEDS: Atropine 1% Opth Drops 100 DROP/5 ML BOTTLE SL PRN ×2 (07:55→19:26)
[2021-04-13] MEDS: Morphine Sulfate Oral CONC 10 MG/0.5 ML ORAL.SYG SL PRN ×3 (07:56→20:57)
[2021-04-13] MEDS: Scopolamine Patch 1.5 MG PATCH.TD72 TD SCH (13:23)
[2021-04-14] MEDS: Morphine Sulfate Oral CONC 10 MG/0.5 ML ORAL.SYG SL PRN ×4 (03:57→23:43)
[2021-04-15] MEDS: Morphine Sulfate Oral CONC 10 MG/0.5 ML ORAL.SYG SL PRN ×4 (05:15→21:06)
[2021-04-15] MEDS: Atropine 1% Opth Drops 100 DROP/5 ML BOTTLE SL PRN ×2 (13:10→21:10)
[2021-04-15] MEDS: *HR* LORazepam Oral Conc 2 MG/ML PO PRN (23:40)
[2021-04-16] MEDS: Morphine Sulfate Oral CONC 10 MG/0.5 ML ORAL.SYG SL PRN ×4 (06:07→22:00)
[2021-04-16] MEDS: Morphine Sulfate 2 MG/ML SYRINGE IVP PRN (10:15)
[2021-04-16] MEDS: *HR* LORazepam Oral Conc 2 MG/ML PO PRN ×2 (10:15→15:47)
[2021-04-16] MEDS: Scopolamine Patch 1.5 MG PATCH.TD72 TD SCH (11:28)
[2021-04-16] MEDS: Atropine 1% Opth Drops 100 DROP/5 ML BOTTLE SL PRN (13:19)
[2021-04-16 19:55] VITALS: PULSE 79; O2SAT 83
[2021-04-17] MEDS: Morphine Sulfate Oral CONC 10 MG/0.5 ML ORAL.SYG SL PRN ×3 (06:18→15:28)
[2021-04-17 08:10] VITALS: BP 56/33; TEMP 98.9
[2021-04-17] MEDS: *HR* LORazepam Oral Conc 2 MG/ML PO PRN ×2 (10:23→15:28)
[2021-04-17] MEDS: Atropine 1% Opth Drops 100 DROP/5 ML BOTTLE SL PRN ×2 (10:52→15:58)
== END 2021-04-17 16:20 | disposition expired | DRG 871 ==
LOC: 2NENU → SUATTDRO 11:30 → UNDODISIN 04-11 14:15 → 2ANU 04-11 18:31
PROVIDERS: ADMIT Internal Medicine; ATTEND Internal Medicine

== ENCOUNTER 2021-04-11 12:06 | Inpatient (IN) ==
[2021-04-11] MEDS ORDERED: Morphine Sulfate Oral CONC 10 MG/0.5 ML ORAL.SYG PO PRN (14:52)
[2021-04-11] MEDS ORDERED: Morphine Sulfate 2 MG/ML SYRINGE IVP PRN (14:52)
[2021-04-11] MEDS ORDERED: Atropine 1% Opth Drops 100 DROP/5 ML BOTTLE SL PRN (14:52)
[2021-04-11] MEDS ORDERED: *HR* LORazepam 2 MG/ML VIAL IVP PRN (14:52)
[2021-04-11] MEDS ORDERED: Haloperidol Lactate 5 MG/ML VIAL IVP PRN (14:52)
[2021-04-12 07:16] VITALS: BP 100/56; PULSE 68; TEMP 100.1; O2SAT 69
== END 2021-04-12 10:32 | disposition short-term general hospital (02) | DRG 951 ==
LOC: 2ANU 14:35
PROVIDERS: ADMIT Internal Medicine Hospice and Palliative Medicine; ATTEND Internal Medicine Hospice and Palliative Medicine